=== PATIENT | female | born 1955 | race Caucasian/White ===

== ENCOUNTER 2024-11-10 13:09 | Outpatient (REF) | payer MEDICARE, OTHER, SELFPAY ==
--- OUTSIDE RECORDS SUMMARY | 2020-08-03 11:15 | XMS_ITS | Continuity of Care Document ---
Author [facility] Address [address] [place] [address] Phone Care Team Providers Care Drug Room Clerk Name Role Phone Maura Ibrahim CNP Unavailable Unavailable Procedures Procedure Date OFFICE/OUTPATIENT VISIT, EST OFFICE/OUTPATIENT VISIT, EST OFFICE/OUTPATIENT VISIT, EST OFFICE/OUTPATIENT VISIT, EST OFFICE/OUTPATIENT VISIT, EST POSTOP FOLLOW-UP VISIT POSTOP FOLLOW-UP VISIT Gastric Bypass LAP GASTRIC BYPASS/KRISTI-EN-Y OFFICE/OUTPATIENT VISIT, EST OFFICE/OUTPATIENT VISIT, NEW Advance Directives Directive Yes / No Effective Date File Name No Information Encounters Encounter Description Practice Location Reason(s) For Visit Diagnoses Date Provider Providers Copied on Encounter OFFICE/OUTPATI ENT VISIT, [facility], [address], [place], [place], [address], [place] tel:[phone] [facility] No Information Patrice Lorenzo. [address], [place], [place], [address], [place]. tel:[phone] Referring Provider: Maura Ibrahim, [address], [place], [address]. tel:[phone] OFFICE/OUTPATI ENT VISIT, Sit[facility]ar [facility], [address], [place], [place], [address], [place] tel:[phone] [facility] No Information Patrice Lorenzo. [address], [place], [place], [address], [place]. tel:[phone] Referring Provider: Maura Ibrahim, [facility] [address], [place], [address]. tel:[phone] OFFICE/OUTPATI ENT VISIT, [facility], [address], [place], [place], [address], [place] tel:[phone] [facility] No Information Patrice Lorenzo. [address] [facility] [facility] [address], [place], [place], [address], [place]. tel:[phone] Referring Provider: Maura Ibrahim, [facility] [address] [facility] [address] [facility] [facility] [address], [place], [address]. tel:[phone] OFFICE/OUTPATI ENT VISIT, [facility], [address], [place], [place], [address], [place] tel:[phone] [facility] No Information Patrice Lorenzo. [address] [facility] [facility] [facility] [address], [place], [place], [address], [place]. tel:[phone] Referring Provider: Maura Ibrahim, [facility] [address] [facility] [facility] [facility] [address], [place], [address]. tel:[phone] OFFICE/OUTPATI ENT VISIT, [facility], [address], [place], [place], [id number], [place] tel:[phone] [facility] No Information Patrice Lorenzo. [address], [place], [place], [address], [place]. tel:[phone] Referring Provider: Maura Ibrahim, [facility] [address] [facility] [facility] [address], [place], [address]. tel:[phone] Lavelle Col[facility]ore [facility], [address] [place] [address] [address], [place], [place], [address], [place] tel:[phone] [facility] No Information Patrice Lorenzo. [address], [place], [place], [address], [place]. tel:[phone] Referring Provider: Maura Ibrahim, [address], [place], [address]. tel:[phone] yuback [facility], [address] [place] [address] [address], [place], [place], [address], [place] tel:[phone] [facility] No Information Patrice Lorenzo. [facility] [address], [place], [place], [address], [place]. tel:[phone] Referring Provider: Maura Ibrahim, [facility] [address], [place], [address]. tel:[phone] yuback [facility], [address] [place] [address] [address], [place], [place], [address], [place] tel:[phone] [facility] IP No Information Patrice Lorenzo. [address], [place], [place], [address], [place]. tel:[phone] Referring Provider: Maura Ibrahim, [facility] [address], [place], [address]. tel:[phone] [facility], [address] [place] [address] [address], [place], [place], [address], [place] tel:[phone] [facility] IP No Information Estevan Shelton. [facility] [address], [place], [place], [address], [place]. tel:[phone] Referring Provider: Nikita Linder, [address], [place], [address]. tel:[phone] OFFICE/OUTPATI ENT VISIT, [facility], [address], [place], [place], [address], [place] tel:[phone] [facility] No Information Estevan Shelton. [address] [facility] [facility] [facility] [address], [place], [place], [address], [place]. tel:[phone] Referring Provider: Nikita Linder, [address] [facility] [address], [place], [address]. tel:[phone] OFFICE/OUTPATI ENT VISIT, [facility] yuback [facility], [address], [place], [place], [address], [place] tel:[phone] [facility] No Information Estevan Shelton. [address] [place] [address] [address], [place], [place], [address], [place]. tel:[phone] Referring Provider: Nikita Linder, [address], [place], [address]. tel:[phone] Family History Family Member Type Diagnosis Age At Onset No Information Payers Payer name Insurance type Covered green party ID [employer] emiliailya(s) [facility] [id number] Social History Type Description Quantity Date Captured Comments Sex Female Smoking Status No Information Chief Complaint And Reason For Visit No Information Reason For Referral Reason For Referral No Information History Of Present Illness Encounter Date Complaint History Of Prese nt Illness No Information Functional Status Date Functional Assessmen t No Information Instructions Date Instruction Additional Infor mation No Information Assessments Type Assessment Date No Information Patient Care Teams Name Effective Dates (start - stop) Status Members No Information
--- OUTSIDE RECORDS SUMMARY | 2024-11-10 14:20 | XMS_ITS | Encounter Summary ---
Author Organization [facility] Address [address] [place] [address] Care Team Providers Care Curtain Stretcher Name Role Phone Hermes Eric MD Primary Care Provider [phone] Reason for Visit * Reason Comments Follow-up Encounter Details Date Type Department Care Team (Late st Contact Info) Description 11/10/2024 2:20 PM EDT Office Visit [facility] [address] [place] [id number] Raciel Bhardwaj DO [address] [place] [address] Vulvar irritation Social History Tobacco Use Types Packs/Day Years Used Date Smoking Tobacco: Never Assessed Comments Unknown Sex and Gender Information Value Date Recorded Sex Assigned at Not on file Legal Sex Female 6:37 PM EDT Gender Identity Not on file Sexual Orientation Not on file documented as of this encounter Last Filed Vital Signs Vital Sign Reading Time Taken Comments Blood Pressure 132/82 11/10/2024 2:44 PM EDT Pulse - - Temperature - - Respiratory Rate - - Oxygen Saturation - - Inhaled Oxygen Concentration - - Weight 100 kg (221 lb) 11/10/2024 2:44 PM EDT Height - - Body Mass Index 44.64 10/20/2024 9:19 AM EDT documented in this encounter Progress Notes * Zoila Dominguez LPN - 11/10/2024 2:20 PM EDT Reason for Appointment: Patient ID: Anna Hallman is a 69 y.o. female who presents for Follow-up Patient presents today for Acute Visit. and Medication Follow Up appointment. MEDICATIONS Current Outpatient Medications Medication Instructions amitriptyline (ELAVIL) 25 mg, Nightly azelastine (Astelin) 0.1 % nasal spray 1 spray, 2 times daily dofetilide (TIKOSYN) 250 mcg, 2 times daily eletriptan (RELPAX) 20 mg, Once as needed estradiol (Estrace) 0.1 MG/GM vaginal cream Apply small amount to affected area around vaginal opening and perineum daily for 2 weeks, omeprazole (PRILOSEC) 20 mg, Daily before breakfast sertraline (ZOLOFT) 50 mg, Daily RT ALLERGIES Allergies Allergen Reactions Ibuprofen PROBLEMS Active Ambulatory Problems Diagnosis Date Noted No Active Ambulatory Problems Resolved Ambulatory Problems Diagnosis Date Noted No Resolved Ambulatory Problems Past Medical History: Diagnosis Date Anxiety 02/13/2022 Asthma ([facility]) 02/13/2022 Cervical spondylosis 03/07/2021 Chronic superficial gastritis without bleeding 05/29/2017 Degenerative lumbar spinal stenosis 03/07/2021 GERD without esophagitis 05/18/2017 Lymphedema of both lower extremities Morbid obesity ([facility]) 01/03/2017 Ophthalmic migraine 05/05/2019 Paroxysmal atrial fibrillation (HCC) 01/18/2023 HISTORY PAST MEDICAL HISTORY SOCIAL HISTORY Past Medical History: Diagnosis Date Anxiety 02/13/2022 Asthma (HCC) 02/13/2022 Cervical spondylosis 03/07/2021 Chronic superficial gastritis without bleeding 05/29/2017 Degenerative lumbar spinal stenosis 03/07/2021 GERD without esophagitis 05/18/2017 Lymphedema of both lower extremities Morbid obesity ([facility]) 01/03/2017 Ophthalmic migraine 05/05/2019 Paroxysmal atrial fibrillation ([facility]) 01/18/2023 Social History Tobacco Use Smoking status: Not on file Smokeless tobacco: Not on file Substance Use Topics Alcohol use: Not on file Drug use: Not on file FAMILY HISTORY Family History Problem Relation Name Age of Onset Prostate cancer Father Breast cancer Mother's Sister SURGICAL HISTORY Past Surgical History: Procedure Laterality Date GALLBLADDER HEART CATH 2021 STOMACH SURGERY 2019 rouen-y TONSILLECTOMY TOTAL KNEE ARTHROPLASTY Bilateral TUBAL LIGATION 1994 REVIEW OF SYSTEMS Review of Systems: Review of Systems Constitutional: Negative. HENT: Negative. Eyes: Negative. Respiratory: Negative. Cardiovascular: Negative. Gastrointestinal: Negative. Genitourinary: Positive for vaginal dryness. Musculoskeletal: Negative. Skin: Negative. Neurological: Negative. All other systems reviewed and are negative. Hematological: Negative. Endocrine: Negative. Allergic/Immunologic: Negative. OBJECTIVE Objective: Physical Exam Constitutional: Appearance: Normal appearance. She is well-developed. Cardiovascular: Rate and Rhythm: Normal rate and regular rhythm. Pulmonary: Effort: Pulmonary effort is normal. Breath sounds: Normal breath sounds. Abdominal: General: Bowel sounds are normal. There is no distension. Palpations: Abdomen is soft. Tenderness: There is no abdominal tenderness. There is no guarding or rebound. Musculoskeletal: General: No swelling. Normal range of motion. Right lower leg: No edema. Left lower leg: No edema. Neurological: Mental Status: She is alert and oriented to person, place, and time. Skin: General: Skin is warm and dry. Psychiatric: Mood and Affect: Mood normal. Behavior: Behavior normal. Vitals and nursing note reviewed. Exam conducted with a pediatric nurse present. Vitals: Estimated body mass index is 44.64 kg/m?? as calculated from the following: Height as of 10/20/24: 4' 11 . Weight as of this encounter: 221 lb. BP: 132/82 No LMP recorded. ASSESSMENT & PLAN ICD-10-CM 1. Vulvar irritation N90.89 Vulvar irritation: Patient presents today for vulvar irritation removal. Patient signed consents for procedure. Patient was placed in dorsal lithotomy position and was draped in normal fashion. Area cleansed with alcohol, lidocaine injected after allowing sufficient time to take affect. pickling drum operator and scissors used to remove affected area. Placed in formalin and sent to pathology. Post-procedure instructions given. Follow Up: As needed Documented by Zoila Dominguez LPN on behalf of: Raciel Bhardwaj DO documented in this encounter Plan of Treatment Not on file documented as of this encounter Visit Diagnoses Diagnosis Vulvar irritation documented in this encounter Care Teams Curtain Stretcher Relationship Specialty Start Date End Date Hermes Eric MD [address] [place] [address] PCP - General Internal Medicine 10/20/24 documented as of this encounter
--- OUTSIDE RECORDS SUMMARY | 2024-11-16 08:00 | XMS_ITS | Encounter Summary ---
Author Organization [facility] Address [address] [place] [address] Phone Care Team Providers Care Wet Roaster Name Role Phone AlyssapipeHermes Kennedy Primary Care Provider [phone] Oliver Otero MD Unavailable Unavailabl e Reason for Referral * Consultation (Routine) - Authorized Specialty Diagnoses / Procedures Referred By Contac t Referred To Contact Cardiology Diagnoses Paroxysmal atrial fibrillation (Multi) High risk medications (not anticoagulants) long-term use Procedures Follow Up In Cardiology Janice Jones APRN-CNP [address] [facility] [address], [address] [address] Phone: tel: fax: Referral ID Status Reason Start Date Expiration Date V isits Requested Visits Authorized [id number] Authorized 11/16/2024 11/16/2025 1 1 * Cardiovascular (Routine) - Authorized Specialty Diagnoses / Procedures Referred By Contac t Referred To Contact Diagnoses Paroxysmal atrial fibrillation (Multi) Procedures ECG 12 Lead Janice Jones APRN-CNP [address] [facility] [address], [address] [address] Phone: tel: fax: Referral ID Status Reason Start Date Expiration Date V isits Requested Visits Authorized [id number] Authorized 11/16/2024 11/16/2025 1 1 Reason for Visit * Reason Comments Follow-up 6 MONTH Follow up fo r Atrial Fibrillation * Consultation (Routine) - Authorized Specialty Diagnoses / Procedures Referred By Conttoy t Referred To Contact Cardiology Diagnoses Paroxysmal atrial fibrillation (Multi) Procedures Follow Up In Cardiology Janice Jones APRN-[facility] [address] [facility] [address], [address] [address] Phone: tel: fax: Referral ID Status Reason Start Date Expiration Date V isits Requested Visits Authorized [id number] Authorized 05/13/2024 05/13/2025 1 1 Encounter Details Date Type Department Care Team (Late st Contact Info) Description 11/16/2024 8:00 AM EDT Office Visit [facility] [address] [phone] Janice Jnoes APRN-[facility] [address] [facility] [address], [address] [address] High risk medications (not anticoagulants) long-term use (Primary Dx); Paroxysmal atrial fibrillation (Multi); BMI 45.0-49.9, adult (Multi) Social History Tobacco Use Types Packs/Day Years Used Date Smoking Tobacco: Never Smokeless Tobacco: Never Alcohol Use Standard Drinks/Week Comments Never 0 (1 standard drink = 0.6 oz pur e alcohol) Comments Unknown Sex and Gender Information Value Date Recorded Sex Assigned at Not on file Legal Sex Female 2:28 PM EST Gender Identity Not on file Sexual Orientation Not on file documented as of this encounter Last Filed Vital Signs Vital Sign Reading Time Taken Comments Blood Pressure 116/82 11/16/2024 7:59 AM EDT Pulse 65 11/16/2024 7:59 AM EDT Temperature - - Respiratory Rate - - Oxygen Saturation - - Inhaled Oxygen Concentration - - Weight 103 kg (226 lb 9.6 oz) 11/16/2024 7:59 AM EDT Height 149.9 cm (4' 11 ) 11/16/2024 7:59 AM EDT Body Mass Index 45.77 11/16/2024 7:59 AM EDT documented in this encounter Functional Status * BP Answer Date of Assessment Author Cliff/82 11/16/2024 7:59 AM EDT Reuben Kelly RN * Pulse Answer Date of Assessment Author 65 11/16/2024 7:59 AM EDT Reuben Kelly RN * Communicable Disease Screening Question Answer Date of Assessment Author Do you have any of the following new or worsening symptoms? None of these 11/16/2024 7:54 AM EDT Kathy Glover documented as of this encounter Patient Instructions * Patient Instructions* MACK Bernabe - 11/16/2024 8:00 AM EDT Please bring all medicines, vitamins, and herbal supplements with you when you come to the office. Prescriptions will not be filled unless you are compliant with your follow up appointments or have a follow up appointment scheduled as per instruction of your physician. Refills should be requested at the time of your visit. PLAN: Through informed decision making process incorporating patients unique circumstances, the followingtreatment plan will be initiated: 1. Prescription drug management of cardiovascular medication for efficacy, adherence to treatment, side effect assessment and polypharmacy. Current treatment clinically warranted and to continue without modifications. 2. Return for follow-up; in the interim, contact the office if new symptoms arise. HOUSEKEEPING ROOM ATTENDANT 6 months EKG done in office today documented in this encounter Plan of Treatment Upcoming Encounters Date Type Department Care Team (Late st Contact Info) Description 05/17/2025 8:30 AM EDT Office Visit [facility] [address] [facility] [address] [place] [address] Janice Jones APRN-CNP [address] [facility] [address] [place] [address] Pending Results Name Type Priority Associated Diagnoses Date /Time ECG 12 Lead ECG Routine Paroxysmal atrial fibrillation (Multi) 11/16/2024 8:00 AM EDT documented as of this encounter Visit Diagnoses Diagnosis High risk medications (not anticoagulants) long-term use- Primary Encounter for long-term (current) use of other medications Paroxysmal atrial fibrillation (Multi) Atrial fibrillation BMI 45.0-49.9, adult (Multi) documented in this encounter Additional Health Concerns Assessment Noted Time A fall risk assessment has been complete d for the patient 11/16/2024 7:58 AM EDT documented as of this encounter Care Teams Wet Roaster Relationship Specialty Start Date End Date Hermes Eric DO PCP - General 02/21/22 Oliver Otero MD Consulting Physician Cardiology 05/13/23 documented as of this encounter
--- OUTSIDE RECORDS SUMMARY | 2024-11-16 13:17 | XMS_ITS | Clinical Summary ---
Author Organization [facility] Address [address] [place] [address] Care Team Providers Care Real Estate Salesperson Name Role Phone Hermes Eric MD Primary Care Provider [phone] Allergies Active Allergy Reactions Criticality Noted Date Comments Ibuprofen 10/20/2024 Medications azelastine (Astelin) 0.1 % nasal spray Administer 1 spray into each nostril in the morning and 1 spray before bedtime. 5 Active amitriptyline (Elavil) 25 MG tablet Take 25 mg by mouth at bedtime Active eletriptan (Relpax) 20 MG tablet Take 20 mg by mouth 1 (one) time if needed Active omeprazole (PriLOSEC) [address] capsule Take 20 mg by mouth in the morning. Take before meals. Active sertraline (Zoloft) 50 MG tablet Take 50 mg by mouth in the morning. 5 Active dofetilide (Tikosyn) 250 MCG capsule Take 250 mcg by mouth in the morning and 250 mcg before bedtime. Active estradiol (Estrace) 0.1 MG/GM vaginal creamIndication s:Vaginal itching,Perinea l irritation in female Apply small amount to affected area around vaginal opening and perineum daily for 2 weeks, 42.5 g 5 Active terconazole (Terazol 7) 0.4 % vaginal creamIndication s:Vaginal itching,Perinea l irritation in female Insert 1 applicator into the vagina at bedtime for 7 days 45 g 5 10/28/19 25 Encounters Date Type Department Care Team Description 11/11/2024 External Result Encounter [facility] External Department Unsolicited Raciel Bhardwaj DO 11/10/2024 2:20 PM EDT Office Visit [facility] [address] [place] [phone] Raciel Bhardwaj DO Vulvar irritation 11/10/2024 Bamboo flowsheet [facility] [address] [facility] [place] [address] Raciel Bhardwaj DO 10/20/2024 9:10 AM EDT Office Visit [facility] [address] [place] [phone] Raciel Bhardwaj DO Vaginal itching; Vaginal dryness; Perineal irritation in female 10/20/2024 Bamboo flowsheet [facility] [address] [facility] [phone] Raciel Bhardwaj DO from Last 3 Months Family History Medical History Relation Name Comments Prostate cancer Father Breast cancer Mother's Sister Relation Name Status Comments Father Mother's Sister Social History Tobacco Use Types Packs/Day Years Used Date Smoking Tobacco: Never Assessed Comments Unknown Sex and Gender Information Value Date Recorded Sex Assigned at Not on file Legal Sex Female 6:37 PM EDT Gender Identity Not on file Sexual Orientation Not on file Last Filed Vital Signs Vital Sign Reading Time Taken Comments Blood Pressure 132/82 11/10/2024 2:44 PM EDT Pulse - - Temperature - - Respiratory Rate - - Oxygen Saturation - - Inhaled Oxygen Concentration - - Weight 100 kg (221 lb) 11/10/2024 2:44 PM EDT Height 149.9 cm (4' 11 ) 10/20/2024 9:19 AM EDT Body Mass Index 44.64 10/20/2024 9:19 AM EDT Plan of Treatment Health Maintenance Due Date Last Done Comments CT Colonography 1957 Colonoscopy 1957 FIT 1957 FOBT 1957 Sigmoidoscopy 1957 Influenza Vaccine (#1) 2024 , 10/18/2023, 11/10/2022, Additional history exists Mammogram 01/30/2025 01/31/2024 Colorectal Cancer Screening 10/25/2025 FIT-DNA 10/25/2025 10/25/2022, 10/19/2019 Pneumococcal Vaccine: 65+ Years Completed , 01/03/2017 Procedures Procedure Name Priority Date/Time Associated Diagnosis Comments PATHOLOGY REQUEST FOR LAB FADI Routine 11/11/2024 12:00 AM EDT from Last 3 Months Results * PATHOLOGY REQUEST FOR LAB FADI (11/11/2024 12:00 AM EDT) PATHOLOGY REQUEST FOR LAB FADI 11/16/2024 12:30 PM EDT [facility] Comment:See report. Scanned copy available in EMR. Other Topography unknown / Unknown 11/11/2024 11/12/2024 10:51 AM EDT Narrative [facility] - 11/16/2024 12:30 PM EDT VULVAR BX us Raciel Bhardwaj DO LAB BLOOD ORDERABLES Final Resul t Performing Organization Address [facility]/State/ZIP Co de Phone Number [facility] [address] [place] [address], [facility] [address] [place] [address] from Last 3 Months Insurance [place] [address] MEDICARE Care Teams Real Estate Salesperson Relationship Specialty Start Date End Date Hermes Eric MD [address] [place] [address] PCP - General Internal Medicine 10/20/24
--- OUTSIDE RECORDS SUMMARY | 2024-11-16 13:17 | XMS_ITS | Encounter Summary ---
Author Organization [facility] Address [address] [place] [address] Phone Care Team Providers Care Nut Feeder Name Role Phone Hermes Eric DO Primary Care Provider [phone] Oliver Otero MD Unavailable Unavailabl e Encounter Details Date Type Department Care Team (Late st Contact Info) Description 02/07/[address] [facility] [address] [place] [id number] Scanning, Generic Provider Social History Tobacco Use Types Packs/Day Years Used Date Smoking Tobacco: Never Assessed Comments Unknown Sex and Gender Information Value Date Recorded Sex Assigned at Not on file Legal Sex Female 2:28 PM EST Gender Identity Not on file Sexual Orientation Not on file documented as of this encounter Plan of Treatment Upcoming Encounters Date Type Department Care Team (Late st Contact Info) Description 05/17/2025 8:30 AM EDT Office Visit [facility] [address] [facility] [address] [place] [address] Janice Jones, FURNACE MAINTENA[facility] [address] [facility] [address] [place], [place] [id number] documented as of this encounter Visit Diagnoses Not on filedocumented in this encounter Care Teams Nut Feeder Relationship Specialty Start Date End Date Hermes Eric DO PCP - General 02/21/22 Oliver Otero MD Consulting Physician Cardiology 05/13/23 documented as of this encounter
--- OUTSIDE RECORDS SUMMARY | 2024-11-16 13:17 | XMS_ITS | Encounter Summary ---
Author Organization [facility] tem Address [facility] [id number] [address] [place] [address] Care Team Providers Care Bulk Plant Supervisor Name Role Phone Hermes Eric DO Primary Care Provider [phone] Encounter Details Date Type Department Care Team (Late st Contact Info) Description 06/29/2024 Orders Only [facility] Internal Medicine - Family Medicine [address] [place] [address] Hermes Eric DO [address] [place] [address] Colon cancer screening (Primary Dx) Social History Tobacco Use Types Packs/Day Years Used Date Smoking Tobacco: Never Smokeless Tobacco: Never Alcohol Use Standard Drinks/Week Comments Not Currently 0 (1 standard drink = 0.6 oz pur e alcohol) QUIT [facility] Utilities Answer Date Recorded In the past 12 months has [employer], gas, oil, or water [employer] threatened to shut off services in your home? No 01/23/2024 Social Connection and Isolat ion Panel [NHANES] Answer Date Recorded In a typical week, how many times do you talk on the phone with family, friends, or neighbors? Once a week 01/23/2024 How often do you get togethe r with friends or relatives? Twice a week 01/23/2024 How often do you attend chur or voodoo services? More than 4 times per year 01/23/2024 Do you belong to any clubs o r organizations such as restoration groups, unions, fraternal or athletic groups, or school groups? No 01/23/2024 How often do you attend meet ings of the clubs or organizations you belong to? Never 01/23/2024 Are you , , di vorced, , never , or living with a partner? 01/23/2024 AUDIT-C Answer Date Recorded Q1: How often do you have a drink containing alcohol? Never 01/23/2024 Q2: How many drinks containi ng alcohol do you have on a typical day when you are drinking? Patient does not drink Q3: How often do you have si x or more drinks on one occasion? Never 01/23/2024 Overall Financial Resource Strain (CARDIA) Answe r Date Recorded How hard is it for you to pa y for the very basics like food, housing, medical care, and heating? Not hard at all 06/18/2024 PHQ-2 Answer Date Recorded Total Score 0 06/19/2024 [facility] - Occupational Stress Questionnaire Answer Date Recorded Do you feel stress - tense, restless, nervous, or anxious, or unable to sleep at night because your mind is troubled all the time - these days? Not at all 01/23/2024 Exercise Vital Sign Answer Date Recorde d On average, how many days pe r week do you engage in moderate to strenuous exercise (like a brisk walk)? 7 days 01/23/2024 On average, how many minutes do you engage in exercise at this level? 20 min 01/23/2024 PRAPARE - Transportation Answer Date Re corded In the past 12 months, has l ack of transportation kept you from medical appointments or from getting medications? No 02/2024 In the past 12 months, has l ack of transportation kept you from meetings, work, or from getting things needed for daily living? No 06/18/2024 Housing Instability Answer Date Recorde d Are you worried or concerned that in the next two months you may not have stable housing that you own, rent or stay in as a part of a household? No 06/18/2024 Childcare Answer Date Recorded Do problems getting child ca re make it difficult for you to work or study? No 01/23/2024 Employment Answer Date Recorded Do you need help finding a [facility] career center and/or a training program? No 01/23/2024 Hunger Screening Answer Date Recorded Within the past 12 months we worried whether our food would run out before we got money to buy more. Never True 06/19/2024 Within the past 12 months th e food we bought just didn't last and we didn't have money to get more. Never True 06/19/2024 Purpose - Life Answer Date Recorded I have a purpose and direction in my life. Agree 01/23/2024 Comments No Sex and Gender Information Value Date Recorded Sex Assigned at Not on file Legal Sex Female 11:36 AM EDT Gender Identity Not on file Sexual Orientation Straight 04/25/2022 1: 34 PM EST documented as of this encounter Plan of Treatment Upcoming Encounters Date Type Department Care Team (Late st Contact Info) Description 01/26/2025 11:00 AM EST Office Visit [facility] - Family Medicine [address] [place] [address] documented as of this encounter Visit Diagnoses Diagnosis Colon cancer screening- Primary Special screening for malignant neoplasms, colon documented in this encounter Additional Health Concerns Assessment Noted Time PHQ-9 Depression Total Score: 0 06/20/19 11:15 AM EDT documented as of this encounter Care Teams Bulk Plant Supervisor Relationship Specialty Start Date End Date Hermes Eric DO [address] [place] [address] PCP - General Internal Medicine 08/23/24 documented as of this encounter
--- OUTSIDE RECORDS SUMMARY | 2024-11-16 13:17 | XMS_ITS | Encounter Summary ---
Author Organization [facility] [employer] [facility] tem Address [facility] [id number] [address] [place] [address] Care Team Providers Care Shank Breaker Name Role Phone Hermes Eric DO Primary Care Provider [phone] Reason for Referral * Rehabilitation - Outpatient (Routine) - Closed Specialty Diagnoses / Procedures Referred By Yarelis armas Referred To Contact Rehabilitation Diagnoses Localized primary osteoarthritis of both hands Hermes Eric DO [address] [place] [address] Phone: tel: fax: [facility] [address] [place] [address] Phone: tel: fax: Referral ID Status Reason Start Date Expiration Date V isits Requested Visits Authorized [id number] Closed Specialty Services Required 10/17/2023 10/17/2024 8 8 Encounter Details Date Type Department Care Team (Late st Contact Info) Description 10/17/2023 Orders Only [facility] Internal Medicine - Family Medicine [address] [place] [address] Hermes Eric DO [address] [place] [address] Localized primary osteoarthritis of both hands (Primary Dx) Social History Tobacco Use Types Packs/Day Years Used Date Smoking Tobacco: Never Smokeless Tobacco: Never Alcohol Use Standard Drinks/Week Comments Yes 1 (1 standard drink = 0.6 oz pur e alcohol) Overall Financial Resource Strain (CARDIA) Answe r Date Recorded How hard is it for you to pa y for the very basics like food, housing, medical care, and heating? Not hard at all 07/14/2023 PHQ-2 Answer Date Recorded Total Score 0 07/18/2023 PRAPARE - Transportation Answer Date Re corded In the past 12 months, has l ack of transportation kept you from medical appointments or from getting medications? No 06/19 In the past 12 months, has l ack of transportation kept you from meetings, work, or from getting things needed for daily living? No 07/14/2023 Housing Instability Answer Date Recorde d Are you worried or concerned that in the next two months you may not have stable housing that you own, rent or stay in as a part of a household? No 07/14/2023 Childcare Answer Date Recorded Childcare Unknown 07/30/2018 Employment Answer Date Recorded Employment Unknown 07/30/2018 Hunger Screening Answer Date Recorded Within the past 12 months we worried whether our food would run out before we got money to buy more. Patient Declined 024 Within the past 12 months th e food we bought just didn't last and we didn't have money to get more. Never True 06/19 Purpose - Life Answer Date Recorded Purpose and direction in life Unknown Comments Unknown Sex and Gender Information Value [...] Internal Medicine - Family Medicine [address] [place] [address] Scheduled Referrals Name Type Priority Associated Diagnoses Orde r Schedule Ambulatory Referral to Rehabilitation Occupational Therapy Outpatient Referral Routine Localized primary osteoarthritis of both hands 1 Occurrences starting 10/17/2023 until 10/16/2024 documented as of this encounter Visit Diagnoses Diagnosis Localized primary osteoarthritis of both hands- Primary documented in this encounter Additional Health Concerns Assessment Noted Time PHQ-9 Depression Total Score: 0 07/18/19 24 9:11 AM EDT documented as of this encounter Care Teams Shank Breaker Relationship Specialty Start Date End Date Hermes Eric DO [address] [place] [address] PCP - General Internal Medicine 08/23/24 documented as of this encounter
--- OUTSIDE RECORDS SUMMARY | 2024-11-16 13:17 | XMS_ITS | Encounter Summary ---
[facility] Address [facility] [id number] [address] [place] [address] Care Team Providers Care Furniture Repairer Name Role Phone Hermes Eric DO Primary Care Provider [phone] Reason for Visit * Reason Onset Date Comments Med Refill 11/12/2024 Encounter Details Date Type Department Care Team (Late st Contact Info) Description 11/12/2024 Refill [facility] Internal Medicine - Family Medicine [address] [place] [address] Hermes Eric DO [address] [place] [address] Non-seasonal allergic rhinitis, unspecified trigger Social History Tobacco Use Types Packs/Day Years Used Date Smoking Tobacco: Never Smokeless Tobacco: Never Alcohol Use Standard Drinks/Week Comments Not Currently 0 (1 standard drink = 0.6 oz pur e alcohol) QUIT [facility] Utilities Answer Date Recorded In the past 12 months has [employer], gas, oil, or water [employer] threatened to shut off services in your home? No 01/23/2024 Social Connection and Isolat ion Panel [NHANES] Answer Date Recorded In a typical week, how many times do you talk on the phone with family, friends, or neighbors? Once a week 01/23/2024 How often do you get togethe r with friends or relatives? Twice a week 01/23/2024 How often do you attend [facility] or shinto services? More than 4 times per year 01/23/2024 Do you belong to any clubs o r organizations such as moravian groups, unions, fraternal or athletic groups, or [...] PHQ-2 Answer Date Recorded Total Score 0 09/01/2024 [facility] - [...] Recorded Do you need help finding a [facility] career center and/or a training program? No 01/23/2024 Hunger Screening Answer Date Recorded Within the past 12 months we worried whether our food would run out before we got money to buy more. Never True 09/01/2024 Within the past 12 months th e food we bought just didn't last and we didn't have money to get more. Never True 09/01/2024 Purpose - Life Answer Date Recorded I [...] Internal Medicine - Family Medicine [address] [place] [phone] documented as of this encounter Visit Diagnoses Diagnosis Non-seasonal allergic rhinitis, unspecified trigger documented in this encounter Additional Health Concerns Assessment Noted Time PHQ-9 Depression Total Score: 0 09/02/19 25 3:01 PM EDT documented as of this encounter Care Teams Furniture Repairer Relationship Specialty Start Date End Date Hermes Eric DO [address] [facility] [place] [address] PCP - General Internal Medicine 08/23/24 documented as of this encounter
--- OUTSIDE RECORDS SUMMARY | 2024-11-16 13:17 | XMS_ITS | Encounter Summary ---
Author Organization [facility] Address [address] [place] [address] Phone Care Team Providers Care Advertising Account Representative Name Role Phone Hermes Eric Primary Care Provider [phone] Oliver Otero MD Unavailable Unavailabl e Encounter Details Date Type Department Care Team (Late st Contact Info) Description 06/19/2023 Scanned Document [facility] [address] [place] [phone] Scanning, Generic Provider Social History Tobacco Use Types Packs/Day Years Used Date Smoking Tobacco: Never Smokeless Tobacco: Current Comments:Vaping occasionally Alcohol Use Standard Drinks/Week Comments Never 0 (1 standard drink = 0.6 oz pur e alcohol) Comments Unknown Sex and Gender Information Value Date Recorded Sex Assigned at Not on file Legal Sex Female 2:28 PM EST Gender Identity Not on file Sexual Orientation Not on file documented as of this encounter Plan of Treatment Upcoming Encounters Date Type Department Care Team (Late Contact Info) Description 05/17/2025 8:30 AM EDT Office Visit [facility] [address] [facility] [address] [place] [address] Janice Jones, COPPER FLOTATION OPERATOR-ACID RETORT OPERATOR [address] [facility] [address], [address] [place] [address] documented as of this encounter Visit Diagnoses Not on filedocumented in this encounter Additional Health Concerns Assessment Noted Time A fall risk assessment has been complete d for the patient 05/13/2023 10:04 AM EDT documented as of this encounter Care Teams Advertising Account Representative Relationship Specialty Start Date End Date Hermes Eric DO PCP - General 02/21/22 Oliver Otero MD Consulting Physician Cardiology 05/13/23 documented as of this encounter
--- OUTSIDE RECORDS SUMMARY | 2024-11-16 13:17 | XMS_ITS | Clinical Summary ---
Author Organization [facility] Address [address] [place] [address] Phone Care Team Providers Care Dye Can Operator Name Role Phone Hermes Eric Primary Care Provider [phone] Oliver Otero MD Unavailable Unavailabl e Allergies Active Allergy Reactions Criticality Noted Date Comments Aspirin Other 01/18/2023 Ibuprofen Nausea/vomiting 01/18/2023 Medications omeprazole (PriLOSEC) [address] capsule Take 1 capsule (20 mg) by mouth once daily. Active sertraline (Zoloft) 100 mg tablet Take 1 tablet (100 mg) by mouth once daily. Active eletriptan (Relpax) 20 mg tablet Take 1 tablet (20 mg) by mouth 1 time if needed for migraine. May repeat in 2 hours if unresolved. Do not exceed 80 mg in 24 hours. Active amitriptyline (Elavil) 25 mg tablet Take 1 tablet (25 mg) by mouth once daily at bedtime. Active dofetilide (Tikosyn) 250 mcg capsuleIndicatio ns:Paroxysmal atrial fibrillation (Multi) Take 1 capsule (250 mcg) by mouth every 12 hours. 180 capsule 3 5 026 Active EPINEPHrine (Adrenalin) 1 mg/mL nasal solution Administer into affected nostril(s) if needed. 025 Discontin ued(Thera py completed ) dofetilide (Tikosyn) 250 mcg capsuleIndicatio ns:Paroxysmal atrial fibrillation (Multi) Take 1 capsule (250 mcg) by mouth every 12 hours. 180 capsule 3 5 09/29/2 025 Discontin ued(Reord er) Active Problems Problem Noted Date Diagnosed Date BMI 45.0-49.9, adult (Multi) 05/13/2023 Assessment & Plan (05/14/2024 9:52 AM EDT): Reviewed the merits of healthy lifestyle choices on overall cardiovascular health. Never smoked tobacco 05/13/2023 Paroxysmal atrial fibrillation (Multi) Assessment & Plan (05/14/2024 9:52 AM EDT): Diagnosed January 2022 hospitalization. She was initiated on dofetilide and has been maintaining normal sinus rhythm since that time. Denies any recurrent palpitations. CHADS VASc 2 in the past has opted against anticoagulation due to excessive bruisability. Also declines aspirin 81 mg due to history of gastric bypass. High risk medications (not anticoagulants) long- term use 01/18/2023 Assessment & Plan (05/14/2024 9:50 AM EDT): Dofetilide start date January 2022 EKG in office normal sinus rhythm, QTc 420. Last creatinine 0.77 Encounters Date Type Department Care Team Description 11/16/2024 8:00 AM EDT Office Visit [address] [address] Janice Jones, TENTMAKER-MEDICAL OFFICE COORDINATOR High risk medications (not anticoagulants) long-term use (Primary Dx); Paroxysmal atrial fibrillation (Multi); BMI 45.0-49.9, adult (Multi) 11/16/2024 Travel from Last 3 Months Immunizations Immunization Administration Dates Next Due Flu vaccine, quadrivalent, n o egg protein, age 6 month or greater (FLUCELVAX) 12/05/2017,01/03/2017 Influenza, injectable, MDCK, quadrivalent 2019 Influenza, seasonal, injectable 10/18/2023 Pfizer COVID-19 vaccine, biv alent, age 12 years and older (30 mcg/0.3 mL) 11/15/2021 Pfizer Chavez Cap SARS-CoV-2 05/19/2021 Pneumococcal conjugate vaccine, 13-valent (PREVN AR 13) 01/03/2017 Pneumococcal conjugate vaccine, 20-valent (PREVN AR 20) 09/11/2022 Social History Tobacco Use Types Packs/Day Years Used Date Smoking Tobacco: Never Smokeless Tobacco: Never Tobacco Cessation:Counseling Given: Yes Alcohol Use Standard Drinks/Week Comments Never 0 [...] Mass Index 45.77 11/16/2024 7:59 AM EDT Plan of Treatment Upcoming Encounters Date Type Department Care Team (Late st Contact Info) Description 05/17/2025 8:30 AM EDT Office Visit [facility] [address] [address] Janice Jones, TENTMAKER-MEDICAL OFFICE COORDINATOR 703 [facility] [address], [address] [place] [address] Health Maintenance Due Date Last Done Comments CT Colonography 1957 Colonoscopy 1957 FIT 1957 Lipid Panel 1955 Medicare Annual Wellness Visit (AWV) 1957 Sigmoidoscopy 1957 MMR Vaccines (1 of 1 - Standard series) 1958 Diabetes Screening 07/01/1975 Hepatitis C Screening 07/01/1975 DTaP/Tdap/Td Vaccines (2 - Td or Tdap) 07/27/2024 07/27/2014 Mammogram 01/30/2025 01/31/2024 Colorectal Cancer Screening 10/25/2025 FIT-DNA (Cologuard) 10/25/2025 10/25/2022, 08/31/202 0 Bone Density Scan 01/30/2026 01/31/2024 Zoster Vaccines Completed 05/16/2022, 02/27/2022 Pneumococcal Vaccine Completed 09/11/2022, 01/04/20 17 RSV High Risk: (Elderly (60+) or Population) Completed 12/08/2022 COVID-19 Vaccine Completed 11/06/2024, , 11/10/2022, Additional history exists Influenza Vaccine Completed 11/06/2024, , 10/18/2023, Additional history exists HIB Vaccines Aged Out No longer eligi ble based on patient's age to complete this topic HPV Vaccines Aged Out No longer eligi ble based on patient's age to complete this topic Hepatitis A Vaccines Aged Out No long er eligible based on patient's age to complete this topic Hepatitis B Vaccines Aged Out No long er eligible based on patient's age to complete this topic IPV Vaccines Aged Out No longer eligi ble based on patient's age to complete this topic Meningococcal Vaccine Aged Out No zaida bakari eligible based on patient's age to complete this topic Rotavirus Vaccines Aged Out No longer eligible based on patient's age to complete this topic Insurance MEDICARE PART A AND B [facility] Member Subscriber Plan / Payer (Ef fective 2023-Present) Name:Anna Hallman Relation to Subscriber:Self Name:Anna Hallman Payer ID:[id number] (IC) Type:Not on file Address: [address] [place] [id number] Care Teams Dye Can Operator Relationship Specialty Start Date End Date Hermes Eric DO PCP - General 02/21/22 Oliver Otero MD Consulting Physician Cardiology 05/13/23
--- OUTSIDE RECORDS SUMMARY | 2024-11-16 13:17 | XMS_ITS | Encounter Summary ---
Author Organization [facility] Address [address] [place] [address] Phone Care Team Providers Care Lead Technologist In Cytogenetics Name Role Phone Hermes Eric DO Primary Care Provider [phone] Oliver Otero MD Unavailable Unavailabl e Encounter Details Date Type Department Care Team (Late st Contact Info) Description 06/22/2024 Scanned Document [facility] [address] [place] [phone] Scanning, Generic Provider Social History Tobacco Use [...] Description 05/17/2025 8:30 AM EDT Office Visit [facility] [address] [facility] [address] [place] [address] Janice Jones, SALES RECRUITING COORDINATOR-CIGARETTE PACKING MACHINE OPERATOR [address] [facility] [address] [place] [address] documented as of this encounter Procedures Procedure Name Priority Date/Time Associated Diagnosis Comments OUTSIDE LAB SCAN 06/22/2024 documented in this encounter Results * OUTSIDE LAB SCAN (06/22/2024) Narrative 06/22/2024 Ordered by an unspecified provider. us Generic Provider Scanning OUTSIDE SCAN Final Result documented in this encounter Visit Diagnoses Not on filedocumented in this encounter Additional Health Concerns Assessment Noted Time A fall risk assessment has been complete d for the patient 05/13/2024 10:23 AM EDT documented as of this encounter Care Teams Lead Technologist In Cytogenetics Relationship Specialty Start Date End Date Hermes Eric DO PCP - General 02/21/22 Oliver Otero MD Consulting Physician Cardiology 05/13/23 documented as of this encounter
--- OUTSIDE RECORDS SUMMARY | 2024-11-16 13:17 | XMS_ITS | Encounter Summary ---
Author Organization [facility] Address [facility] [id number] [address] [place] [address] Care Team Providers Care Device Engineer Name Role Phone Hermes Eric DO Primary Care Provider [phone] Reason for Visit * Reason Comments Med Change Request Encounter Details Date Type Department Care Team (Late st Contact Info) Description 03/27/2022 Refill [facility] Internal Medicine - Family Medicine [address] [place] [address] Hermes Eric DO [address] [place] [address] Prudence guerra Social History Tobacco Use Types Packs/Day Years Used Date Smoking Tobacco: Never Smokeless Tobacco: Never Alcohol Use Standard Drinks/Week Comments Yes 1 (1 standard drink = 0.6 oz pur e alcohol) PHQ-2 Answer Date Recorded Total Score 0 03/22/2022 Childcare Answer Date Recorded Childcare Unknown 07/30/2018 Employment Answer Date Recorded Employment Unknown 07/30/2018 Purpose - Life Answer Date Recorded Purpose and direction in life Unknown Comments Unknown Sex and Gender Information Value Date Recorded Sex Assigned at Not on file Legal Sex Female 11:36 AM EDT Gender Identity Not on file Sexual Orientation Straight 04/25/2022 1: 34 PM EST COVID-19 Exposure Response Date Recorded In the last month, have you been in contact with someone who was confirmed or suspected to have Coronavirus / COVID-19? No / Unsure 03/30/2022 6:21 PM EST documented as of this encounter Plan of Treatment Upcoming Encounters Date Type Department Care Team (Late st Contact Info) Description 01/26/2025 11:00 AM EST Office Visit [facility] Medicine - Family Medicine [address] [place] [address] documented as of this encounter Visit Diagnoses Diagnosis Plantar wart documented in this encounter Additional Health Concerns Assessment Noted Time PHQ-9 Depression Total Score: 0 03/22/19 23 10:41 AM EST documented as of this encounter Care Teams Device Engineer Relationship Specialty Start Date End Date Hermes Eric DO [address] [place] [address] PCP - General Internal Medicine 08/23/24 documented as of this encounter
--- OUTSIDE RECORDS SUMMARY | 2024-11-16 13:17 | XMS_ITS | Encounter Summary ---
Author Organization [facility] Address [address] [place] [address] Care Team Providers Care Forestry Adviser Name Role Phone Hermes Eric MD Primary Care Provider [phone] Encounter Details Date Type Department Care Team (Late st Contact Info) Description 11/10/2024 Bamboo flowsheet [facility] [address] [place] [address] Raciel Bhardwaj DO [address] Daniela Oates, [facility] Social History Tobacco Use Types Packs/Day Years Used Date Smoking Tobacco: Never Assessed Comments Unknown Sex and Gender Information Value Date Recorded Sex Assigned at Not on file Legal Sex Female 6:37 PM EDT Gender Identity Not on file Sexual Orientation Not on file documented as of this encounter Plan of Treatment Not on file documented as of this encounter Visit Diagnoses Not on filedocumented in this encounter Care Teams Forestry Adviser Relationship Specialty Start Date End Date Hermes Eric MD [address] [place] [address] PCP - General Internal Medicine 10/20/24 documented as of this encounter
--- OUTSIDE RECORDS SUMMARY | 2024-11-16 13:17 | XMS_ITS | Encounter Summary ---
[facility] Address [id number] [address] [place] [address] Care Team Providers Care Tool Maker Bench Name Role Phone AlyssaHermes betancur Jony ADAN Primary Care Provider [phone] Encounter Details Date Type Department Care Team (Late st Contact Info) Description 06/19/2024 [facility]phone [facility] [address] [place] [address] Indigo Krishna CMA Social History Tobacco Use Types Packs/Day Years Used Date Smoking Tobacco: Never Smokeless Tobacco: Never Alcohol Use Standard Drinks/Week Comments Not Currently 0 (1 standard drink = 0.6 oz pur e alcohol) QUIT [facility] Utilities Answer Date Recorded In the past 12 months has e electric, gas, oil, or water [employer] threatened to shut off services in your home? No 01/23/2024 Social Connection and Isolat ion Panel [NHANES] Answer Date Recorded In a typical week, how many times do you talk on the phone with family, friends, or neighbors? Once a week 01/23/2024 How often do you get togethe r with friends or relatives? Twice a week 01/23/2024 How often do you attend chur ch or spiritism services? More than 4 times per year 01/23/2024 Do you belong to any clubs o r organizations such as congregation groups, unions, fraternal or athletic groups, or [...] Answer Date Recorded Total Score 0 06/19/2024 [facility] [place] of Occupat ional Health - Occupational Stress [...] Recorded Do you need help finding a l ocal career center and/or a training program? No [...] PM EST documented as of this encounter Functional Status * Over the last 2 weeks, how often have you been bothered by any of the following problems? Question Answer Date of Assessment Author Feeling nervous, anxious, or on edge 1 06/19/2024 11:15 AM EDT Jory Ring CMA Not being able to stop or co ntrol worrying 3 06/19/2024 11:15 AM EDT Jory Ring CMA Worrying too much about diff erent things 0 06/19/2024 11:15 AM EDT Jory Ring CMA Trouble relaxing 0 06/19/2024 11:15 AM EDT Jory Ring CMA Being so restless that it is hard to sit still 0 06/19/2024 11:15 AM EDT Jory Ring CMA Becoming easily annoyed or irritable 1 06/19/2024 11:15 AM EDT Jory Ring CMA Feeling afraid as if somethi ng awful might happen 0 06/19/2024 11:15 AM EDT Jory Ring CMA RUDDY-7 Total Score 5 06/19/2024 11:15 AM EDT Jory Ring CMA documented as of this encounter Miscellaneous Notes * Telephone Encounter - Indigo Krishna CMA - 06/19/2024 12:10 PM EDT This patient is scheduled for her Colonoscopy for Diverticulitis on July 07 at 9:00. She would like the SuPrep called in to [facility] * Telephone Encounter - Hermes Eric DO - 06/19/2024 12:10 PM EDT Message noted. H&P done Rx Suprep sent to pharmacy documented in this encounter Plan of Treatment Upcoming Encounters Date Type Department Care Team (Late st Contact Info) Description 01/26/2025 11:00 AM EST Office Visit [facility] Internal Medicine - Family Medicine [address] [place] [address] documented as of this encounter Visit Diagnoses Not on filedocumented in this encounter Additional Health Concerns Assessment Noted Time PHQ-9 Depression Total Score: 0 06/20/19 11:15 AM EDT documented as of this encounter Care Teams Tool Maker Bench Relationship Specialty Start Date End Date Hermes Eric DO [address] [place] [address] PCP - General Internal Medicine 08/23/24 documented as of this encounter
--- OUTSIDE RECORDS SUMMARY | 2024-11-16 13:17 | XMS_ITS | Encounter Summary ---
Author Organization [facility] tem Address [id number] [address] [place] [address] Care Team Providers Care Records Management Coordinator Name Role Phone Hermes Eric DO Primary Care Provider [phone] Reason for Referral * Occupational Therapy (Routine) - Closed Specialty Diagnoses / Procedures Referred By Yarelis gonzales Referred To Contact Occupational Therapy Diagnoses Pain of right thumb Tendinitis of thumb Hermes Eric DO [address] [place] [address] Phone: tel: fax: Referral ID Status Reason Start Date Expiration Date V isits Requested Visits Authorized [id number] Closed Specialty Services Required 10/31/2022 10/31/2023 8 8 Encounter Details Date Type Department Care Team (Late st Contact Info) Description 10/31/2022 Orders Only [facility] Internal Medicine - Family Medicine [address] [place] [address] Hermes Eric DO [address] [place], [place] [id number] Pain of right thumb (Primary Dx); Tendinitis of thumb Social History Tobacco Use Types Packs/Day Years Used Date Smoking Tobacco: Never Smokeless Tobacco: Never Alcohol Use Standard Drinks/Week Comments Yes 1 (1 standard drink = 0.6 oz pur e alcohol) Overall Financial Resource Strain (CARDIA) Answe r Date Recorded How hard is it for you to pa y for the very basics like food, housing, medical care, and heating? Not very hard 06/01/2022 PHQ-2 Answer Date Recorded Total Score 0 09/18/2022 PRAPARE - Transportation Answer Date Re corded In the past 12 months, has l ack of transportation kept you from medical appointments or from getting medications? No 05/19 In the past 12 months, has l ack of transportation kept you from meetings, work, or from getting things needed for daily living? No 06/01/2022 Housing Instability Answer Date Recorde d Are you worried or concerned that in the next two months you may not have stable housing that you own, rent or stay in as a part of a household? No 06/01/2022 Childcare Answer Date Recorded Childcare Unknown 07/30/2018 [...] Internal Medicine - Family Medicine [address] [place] [address] Scheduled Referrals Name Type Priority Associated Diagnoses Order Schedule Ambulatory referral to Occupational Therapy Outpatient Referral Routine Pain of right thumb Tendinitis of thumb 1 Occurrences starting 10/31/2022 until 11/01/2023 documented as of this encounter Visit Diagnoses Diagnosis Pain of right thumb- Primary Tendinitis of thumb documented in this encounter Additional Health Concerns Assessment Noted Time PHQ-9 Depression Total Score: 0 09/19/19 23 12:06 PM EDT documented as of this encounter Care Teams Records Management Coordinator Relationship Specialty Start Date End Date Hermes Eric DO [address] [place] [address] PCP - General Internal Medicine 08/23/24 documented as of this encounter
--- OUTSIDE RECORDS SUMMARY | 2024-11-16 13:17 | XMS_ITS | Encounter Summary ---
Author Organization [facility] Address [address] [place] [place] [address] Care Team Providers Care Goldsmith Apprentice Name Role Phone Hermes Eric MD Primary Care Provider [phone] Encounter Details Date Type Department Care Team (Late st Contact Info) Description 11/11/2024 External Result Encounter [facility] External Department Unsolicited Raciel Bhardwaj DO [address] [place], [place] [id number] Social History Tobacco Use Types Packs/Day Years Used Date Smoking Tobacco: Never Assessed Comments Unknown Sex and Gender Information Value Date Recorded Sex Assigned at Not on file Legal Sex Female 6:37 PM EDT Gender Identity Not on file Sexual Orientation Not on file documented as of this encounter Plan of Treatment Not on file documented as of this encounter Procedures Procedure Name Priority Date/Time Associated Diagnosis Comments PATHOLOGY REQUEST FOR LAB FADI Routine 11/11/2024 12:00 AM EDT documented in this encounter Results * PATHOLOGY REQUEST FOR LAB FADI (11/11/2024 12:00 AM EDT) PATHOLOGY REQUEST FOR LAB FADI 11/16/2024 12:30 PM EDT [facility] Comment:See report. Scanned copy available in EMR. Other Topography unknown / Unknown 11/11/2024 11/12/2024 10:51 AM EDT Narrative [facility] - 11/16/2024 12:30 PM EDT VULVAR BX us Raciel Benton DO LAB BLOOD ORDERABLES Final Resul t [facility] [address] [place] [address], [facility] [address] [place] [address] documented in this encounter Visit Diagnoses Not on filedocumented in this encounter Care Teams Goldsmith Apprentice Relationship Specialty Start Date End Date Hermes Eric MD [address] [place] [address] PCP - General Internal Medicine 10/20/24 documented as of this encounter
--- OUTSIDE RECORDS SUMMARY | 2024-11-16 13:17 | XMS_ITS | Encounter Summary ---
Author Organization [employer] tem Address [id number] [address] [place] [address] Care Team Providers Care Wind Operations Supervisor Name Role Phone Hermes Eric DO Primary Care Provider [phone] Encounter Details Date Type Department Care Team (Late st Contact Info) Description 11/19/2022 Orders Only [facility] Internal Medicine - Family Medicine [address] [place] [address] Hermes Eric DO [address] [place] [address] Migraine without aura, not intractable, without status migrainosus Social History Tobacco Use Types Packs/Day Years [...] PHQ-2 Answer Date Recorded Total Score 0 11/14/2022 PRAPARE - Transportation Answer Date Re corded [...] Internal Medicine - Family Medicine [address] [place] [address] documented as of this encounter Visit Diagnoses Diagnosis Migraine without aura, not intractable, without status migrainosus documented in this encounter Additional Health Concerns Assessment Noted Time PHQ-9 Depression Total Score: 0 11/15/19 23 3:57 PM EDT documented as of this encounter Care Teams Wind Operations Supervisor Relationship Specialty Start Date End Date Hermes Eric DO [address] [place] [address] PCP - General Internal Medicine 08/23/24 documented as of this encounter
--- OUTSIDE RECORDS SUMMARY | 2024-11-16 13:17 | XMS_ITS | Encounter Summary ---
Author Organization [facility] Address [id number] [address] [place] [address] Care Team Providers Care Channel Process Plant Operator Name Role Phone Hermes Eric DO Primary Care Provider [phone] Encounter Details Date Type Department Care Team (Late st Contact Info) Description 09/12/2022 Orders Only [facility] Internal Medicine - Family Medicine [address] [place] [address] Hermes Eric DO [address] [place] [address] Social History Tobacco Use Types Packs/Day Years [...] 06/01/2022 PHQ-2 Answer Date Recorded Total Score 1 09/11/2022 PRAPARE - Transportation Answer Date Re corded [...] Internal Medicine - Family Medicine [address] [facility] [place] [address] documented as of this encounter Procedures Procedure Name Priority Date/Time Associated Diagnosis Comments COLOGUARD Routine 10/23/2019 2:17 PM EDT COLOGUARD Routine 10/23/2019 2:16 PM EDT HEPATITIS C(HCV) ANTIBODY W/REFLEX TO PCR Routine 06/28/2016 2:13 PM EDT documented in this encounter Results * COLOGUARD (10/23/2019 2:17 PM EDT) Gerri Flores APRN-[facility] HE[facility] MAINTENANCE Final Re sult Performing Organization Address [facility] de Phone Number MANUALLY TRANSCRIBED RESULTS * COLOGUARD (10/23/2019 2:16 PM EDT) Gerri Flores APRN-[facility] MAINTENANCE Final Re sult * Hepatitis C(HCV) Ab w/ Reflex to PCR (06/28/2016 2:13 PM EDT) Hermes Eric DO LAB BLOOD ORDERABLES Final Resul t Performing Organization Address City/[facility] Co de Phone Number MANUALLY TRANSCRIBED RESULTS documented in this encounter Visit Diagnoses Not on filedocumented in this encounter Additional Health Concerns Assessment Noted Time PHQ-9 Depression Total Score: 1 09/12/19 23 8:54 AM EDT documented as of this encounter Care Teams Channel Process Plant Operator Relationship Specialty Start Date End Date Hermes Eric DO [address] [place] [address] PCP - General Internal Medicine 08/23/24 documented as of this encounter
--- OUTSIDE RECORDS SUMMARY | 2024-11-16 13:17 | XMS_ITS | Encounter Summary ---
Author Organization [facility] Address [address] [place] [address] Phone Care Team Providers Care Mortgage Loan Funder Name Role Phone Hermes Eric DO Primary Care Provider [phone] Oliver Otero MD Unavailable Unavailabl e Encounter Details Date Type Department Care Team (Late st Contact Info) Description 02/05/2022 Orders Only [facility] [address] [place] [address] Conversion, Onbase Social History Tobacco Use Types Packs/Day Years [...] Description 05/17/2025 8:30 AM EDT Office Visit [place] [address] [facility] [address] [place] [address] Janice Jones, SATELLITE INSTALLER-TEXTILE COATING MACHINE OPERATOR [address] [facility] [address] [place] [address] Scheduled Orders Name Type Priority Associated Diagnoses Orde r Schedule OUTSIDE LAB SCAN Lab Ordered: 02/05/2022 documented as of this encounter Visit Diagnoses Not on filedocumented in this encounter Care Teams Mortgage Loan Funder Relationship Specialty Start Date End Date Hermes Eric DO PCP - General 02/21/22 Oliver Otero MD Consulting Physician Cardiology 05/13/23 documented as of this encounter
--- OUTSIDE RECORDS SUMMARY | 2024-11-16 13:17 | XMS_ITS | Encounter Summary ---
Author Organization [facility] Address [address] [place] [address] Phone Care Team Providers Care Casino Games Dealer Name Role Phone Hermes Eric DO Primary Care Provider [phone] Oliver Otero MD Unavailable Unavailabl e Encounter Details Date Type Department Care Team (Latest Contact Info) Description 11/16/2024 Travel Social History Tobacco Use Types Packs/Day Years [...] on file documented as of this encounter Functional Status * BP Answer Date of Assessment Author 116/82 11/16/2024 7:59 AM EDT Reuben Kelly RN * Pulse Answer Date of Assessment Author 67 11/16/2024 7:59 AM EDT Reuben Kelly RN * Communicable Disease Screening Question Answer Date of Assessment Author Do you have any of the following new or worsening symptoms? None of these 11/16/2024 7:54 AM EDT Kathy Glover documented as of this encounter Plan of Treatment Upcoming Encounters Date Type Department Care Team (Late st Contact Info) Description 05/17/2025 8:30 AM EDT Office Visit [facility] [address] [facility] [address] [place] [address] Janice Jones, POLE TRUCK DRIVER-RECEIVING SPECIALIST [address] [place] [address] documented as of this encounter Visit Diagnoses Not on filedocumented in this encounter Additional Health Concerns Assessment Noted Time A fall risk assessment has been complete d for the patient 11/16/2024 7:58 AM EDT documented as of this encounter Care Teams Casino Games Dealer Relationship Specialty Start Date End Date Hermes Eric DO PCP - General 02/21/22 Oliver Otero MD Consulting Physician Cardiology 05/13/23 documented as of this encounter
--- OUTSIDE RECORDS SUMMARY | 2024-11-16 13:18 | XMS_ITS | Clinical Summary ---
Author Organization [facility] tem Address [facility] [id number] [address] [place] [address] Care Team Providers Care Grinder Set Up Operator Thread Name Role Phone Hermes Eric Primary Care Provider [phone] Allergies Active Allergy Reactions Criticality Noted Date Comments Cat Dander Itching 02/12/2022 Doxycycline Vomiting 02/13/2022 Ibuprofen Vomiting 08/31/2016 Medications dofetilide (TIKOSYN) 250 MCG capsule Take 1 capsule (250 mcg total) by mouth in the morning and 1 capsule (250 mcg total) before bedtime. 2 Active eletriptan (RELPAX) 20 mg tabletIndicatio ns:Migraine without aura, not intractable, without status migrainosus TAKE 1 TAB ONCE NEEDED FOR MIGRAINE. MAY REPEAT IN 2 HOURS IF UNRESOLVED *MAX 4/24 HOURS* 12 tablet 4 Active amitriptyline (ELAVIL) 25 mg tabletIndicatio ns:Migraine without aura, not intractable, without status migrainosus TAKE 1 TABLET BY MOUTH EVERY DAY AT NIGHT 90 tablet 1 5 Active omeprazole (PriLOSEC) 20 mg capsule TAKE 1 CAPSULE BY MOUTH EVERY DAY IN THE MORNING 90 capsule 1 5 Active sertraline (ZOLOFT) 50 mg tabletIndicatio ns:Depression, unspecified Take 1 tablet (50 mg total) by mouth in the morning. 90 tablet 1 5 Active azelastine (ASTELIN) 137 mcg (0.1 %) nasal sprayIndication s:Non-seasonal allergic rhinitis, unspecified trigger Administer 2 sprays into each nostril in the morning and 2 sprays before bedtime. Use in each nostril as directed. 90 mL 1 5 Active azelastine (ASTELIN) 137 mcg (0.1 %) nasal sprayIndication s:Non-seasonal allergic rhinitis, unspecified trigger INSTILL 2 SPRAYS INTO EACH NOSTRIL IN THE MORNING AND BEFORE BEDTIME DIRECTED 90 mL 1 5 11/13/19 25 Discontin ued(Reord er) Active Problems Problem Noted Date Diagnosed Date Colon cancer screening 06/29/2024 Paroxysmal A-fib 01/18/2023 Asthma 02/13/2022 Anxiety disorder 02/13/2022 Degenerative lumbar spinal stenosis 03/07/2021 Cervical spondylosis 03/07/2021 Ophthalmic migraine 05/05/2019 Chronic superficial gastritis without bleeding 0 05/29/2017 GERD without esophagitis 05/18/2017 Morbid obesity 01/03/2017 Lymphedema of both lower extremities Encounters Date Type Department Care Team Description 11/12/2024 Refill [facility] [address] [place] [address] Hermes Eric, Non-seasonal allergic rhinitis, unspecified trigger 11/08/2024 Refill [facility] [address] [place] [address] eHrmes Eric, Non-seasonal allergic rhinitis, unspecified trigger 09/01/2024 3:00 PM EDT Office Visit [facility] [address] [place] [address] Hermes Eric, Cellulitis of right lower extremity (Primary Dx); Lower urinary tract symptoms (LUTS) 08/31/2024 Travel 08/24/2024 [facility]phone [facility] [address] [place] [address] Rupal Mendoza, YUSUF Er Follow-up 08/23/2024 9:49 AM EDT - 08/23/2024 10:10 AM EDT Emergency [facility] - Emergency [address] [place] [address] Ming Escobar MD Insect stings, accidental or unintentional, initial encounter (Primary Dx) Discharge Disposition: Home 08/23/2024 Travel from Last 3 Months Immunizations Immunization Administration Dates Next Due COVID-19, mRNA, LNP-S, PF, 30mcg/0.3mL Dose 11/10/2022,01/10/2021,05/13/2020,2020 Covid-19, Mrna, Lnp-s, Bival ent, Pf, 30mcg/0.3 ml 11/15/2021 Covid-19, Mrna, Lnp-s, Pf, 3 0 Mcg/0.3 Ml Dose, Vitaliy-sucrose 05/19/2021 Covid-19, Mrna, Lnp-s, Pf,vitaliy-sucrose,30 Mcg/0.3ml Seasonal 11/15/2023,11/10/2022 Influenza (IM) Preservative Free 12/29/2015 Influenza Vaccine, Quadrival ent, Adjuvanted 11/10/2022 Influenza, Im Trivalent Preservative 10/18/2023 Influenza, Injectable, MDCK, Quadrivalent 11/19/2019 Influenza, Injectable, Mdck, Preservative Free, Quad 12/05/2017,01/03/2017 Influenza, Injectable, quadr ivalent (PF) 11/23/2020,12/03/2018 Influenza, Trivalent, Adjuvanted 11/15/2023 Influenza, Unspecified 11/15/2021 Pneumococcal Conjugate 13-Valent 01/03/2017 Pneumococcal Conjugate 20-valent 09/11/2022 RSV, recombinant, protein gresham bunit RSVpreF, adjuvant reconstituted, 0.5 mL, PF 12/08/2022 SARS-COV-2 (COVID-19) Vaccin e, Unspecified 11/16/2021 Tdap 07/27/2014 Zoster Live 02/27/2022 Zoster Vaccine Recombinant 05/16/2022 Family History Medical History Relation Name Comments Cancer Father Prostate Breast cancer Maternal Aunt Prema Voss Was not cau se of , unk age Aortic aneurysm Mother Chris Breast Cancer Neg Hx Relation Name Status Comments Father Maternal Aunt Prema Voss Mother Social History Tobacco Use Types Packs/Day Years Used Date Smoking Tobacco: Never Smokeless Tobacco: Never Tobacco Cessation:Counseling Given: Not Answered Alcohol Use Standard Drinks/Week Comments Not Currently 0 (1 standard drink = 0.6 oz pur e alcohol) QUIT [facility] Utilities Answer Date Recorded In the past 12 months has th e electric, gas, oil, or water company threatened to shut off services in your [...] often do you attend chur ch or taoist services? More than 4 times per year 01/23/2024 Do you belong to any clubs o r organizations such as orthodox groups, unions, fraternal or athletic groups, or [...] Answer Date Recorded Total Score 0 09/01/2024 [facility] Occupat ional Health - Occupational Stress [...] Recorded Do you need help finding a [facility] and/or a training program? No 01/23/2024 [...] Orientation Straight 04/25/2022 1: 34 PM EST Last Filed Vital Signs Vital Sign Reading Time Taken Comments Blood Pressure 118/80 09/01/2024 3:01 PM EDT Pulse 65 09/01/2024 3:01 PM EDT Temperature 36.5 C (97.7 F) 09/01/2024 3:01 PM EDT Respiratory Rate 18 09/01/2024 3:01 PM EDT Oxygen Saturation 98% 09/01/2024 3:01 PM EDT Inhaled Oxygen Concentration - - Weight 100.9 kg (222 lb 6.4 oz) 09/01/2024 3:01 PM EDT Height 149.9 cm (4' 11.02 ) 09/01/2024 3:01 PM E DT Body Mass Index 44.9 09/01/2024 3:01 PM EDT Plan of Treatment Upcoming Encounters Date Type Department Care Team (Late st Contact Info) Description 01/26/2025 11:00 AM EST Office Visit [facility] [address] [place] [address] Health Maintenance Due Date Last Done Comments Adult BMI Follow Up Plan 07/01/1975 Zoster (Shingles) Vaccine (3 of 3) 07/11/2022 05/16/2022, 02/27/2022 DTaP,Tdap and Td Vaccines (2 - Td or Tdap) 07/27/2024 07/27/2014 COVID-19 Vaccine (2023-2 5 season) 2024 11/15/2023, 11/10/2022, 11/10/2022, Additional history exists Influenza Vaccine 10/19/2024 11/15/2023, , 11/10/2022, Additional history exists Medicare Annual Wellness Visit 01/22/2025 01/23/2024 Fall Risk Screening 06/19/2025 06/19/2024 Adult BMI Screening 09/01/2025 09/01/2024 Depression Screening 09/01/2025 09/01/2024 Tobacco Screening 09/01/2025 09/01/2024 Colon Cancer Screening 3 Yea r Cologuard 10/25/2025 10/25/2022, 10/23/2019, 10/23/2019, Additional history exists Medical Devices Not on file Procedures Procedure Name Priority Date/Time Associated Diagnosis Comments COLOGUARD NON-[facility] Routine 10/25/2022 8:10 AM EDT Special screening for malignant neoplasm of colon from Last 3 Months or Most Recently Relevant to Health Maintenance Results * Cologuard Non-[facility] (10/25/2022 8:10 AM EDT) EXTERNAL COLOGUARD Negative Negative 2022 5:57 PM EDT [facility] (CLIA #:[id number]) Comment: NEGATIVE TEST RESULT. A negative Cologuard result indicates a low likelihood that a colorectal cancer (CRC) or advanced adenoma (adenomatous polyps with more advanced pre-malignant features) is present. The chance that a person with a negative Cologuard test has a colorectal cancer is less than 1 in 1500 (negative predictive value >99.9%) or has an advanced adenoma is less than 5.3% (negative predictive value 94.7%). These data are based on a prospective cross-sectional study of 10,000 individuals at average risk for colorectal cancer who were screened with both Cologuard and colonoscopy. (Dinesh Garvin al, N Engl J Med 2014;370(14):1703-1678) The normal value (reference range) for this assay is negative. COLOGUARD RE-SCREENING RECOMMENDATION: Periodic colorectal cancer screening is an important part of preventive healthcare for asymptomatic individuals at average risk for colorectal cancer. Following a negative Cologuard result, the [place] Cancer Society and U.S. Multi-Society Task Force screening guidelines recommend a Cologuard re-screening interval of 3 years. References: [place] [employer] Guideline for Colorectal Cancer Screening: https://www.cancer.org/cancer/cooja-nccdto-dyoqvp/jijoepncb-hhyrxvmtg-cdueavg/ac s-rec ommendations.html.; Morro BONILLA, Breonna SOSA, Holger BeaulieuK, Colorectal Cancer Screening: Recommendations for Physicians and Patients from the U.S. Multi-Society Task Force on Colorectal Cancer Screening , Am J Gastroenterology 2017; 112:5091-9418. TEST DESCRIPTION: Composite algorithmic analysis of stool DNA-biomarkers with hemoglobin immunoassay. Quantitative values of individual biomarkers are not reportable and are not associated with individual biomarker result reference ranges. Cologuard is intended for colorectal cancer screening of adults of either sex, 45 years or older, who are at average-risk for colorectal cancer (CRC). Cologuard has been approved for use by the U.S. FDA. The performance of Cologuard was established in a cross sectional study of average-risk adults aged 50-84. Cologuard performance in patients ages 45 to 49 years was estimated by sub-group analysis of near-age groups. Colonoscopies performed for a positive result may find as the most clinically significant lesion: colorectal cancer [4.0%], advanced adenoma (including sessile serrated polyps greater than or equal to 1cm diameter) [20%] or non- advanced adenoma [31%]; or no colorectal neoplasia [45%]. These estimates are derived from a prospective cross-sectional screening study of 10,000 individuals at average risk for colorectal cancer who were screened with both Cologuard and colonoscopy. (Dinesh Garvin al, N Engl J Med 2014;370(14):5185-0125.) Cologuard may produce a false negative or false positive result (no colorectal cancer or precancerous polyp present at colonoscopy follow up). A negative Cologuard test result does not guarantee the absence of CRC or advanced adenoma (pre-cancer). The current Cologuard screening interval is every 3 years. ([place] Cancer Society and U.S. Multi-Society Task Force). Cologuard performance data in a 10,000 patient pivotal study using colonoscopy as the reference method can be accessed at the following location: www.BaroFold/results. Additional description of the Cologuard test process, warnings and precautions can be found at www.PrintiogImimtekrdLibriLoop. Stool specimen (specimen) Rectum structure / Unknown 10/25/2022 8:10 AM EDT 10/27/2022 3:51 PM EDT Hermes Eric DO LAB ORDERABLES Final Result [facility] (CLIA #:[id number]) [address] [place] [address], from Last 3 Months or Most Recently Relevant to Health Maintenance Insurance MEDICARE Care Teams Grinder Set Up Operator Thread Relationship Specialty Start Date End Date Hermes Eric DO [facility] [place] [address] PCP - General Internal Medicine 08/23/24
--- OUTSIDE RECORDS SUMMARY | 2024-11-16 13:18 | XMS_ITS | Encounter Summary ---
Author Organization [facility] tem Address [id number] [address] [place] [address] Care Team Providers Care Workforce Investment Act Career Manager Name Role Phone Hermes Eric Primary Care Provider [phone] Encounter Details Date Type Department Care Team (Late Contact Info) Description 04/26/2022 Telephone [facility] [address] [place] [address] Indigo Krishna CMA Social History Tobacco Use Types Packs/Day Years Used Date Smoking Tobacco: Never Smokeless Tobacco: Never Alcohol Use Standard Drinks/Week Comments Yes 1 (1 standard drink = 0.6 oz pur e alcohol) PHQ-2 Answer Date Recorded Total Score 7 04/24/2022 Childcare Answer Date Recorded Childcare Unknown 07/30/2018 [...] have Coronavirus / COVID-19? No / Unsure 04/25/2022 10:22 AM EST documented as of this encounter Plan of Treatment Upcoming Encounters Date Type Department Care Team ([facility] Contact Info) Description 01/26/2025 11:00 AM EST Office Visit [facility] [address] [place] [address] documented as of this encounter Visit Diagnoses Not on filedocumented in this encounter Additional Health Concerns Assessment Noted Time PHQ-9 Depression Total Score: 7 04/25/19 23 8:33 AM EST documented as of this encounter Care Teams Workforce Investment Act Career Manager Relationship Specialty Start Date End Date Hermes Eric DO [address] [place] [address] PCP - General Internal Medicine 08/23/24 documented as of this encounter
--- OUTSIDE RECORDS SUMMARY | 2024-11-16 13:18 | XMS_ITS | Encounter Summary ---
Author Organization [email or web address] Address [facility] [id number] [address] [place] [address] Care Team Providers Care Consulting Intern Name Role Phone Hermes Eric DO Primary Care Provider Reason for Referral * Consultation (Routine) - Closed Specialty Diagnoses / Procedures Referred By Yarelis gonzales Referred To Contact Rehabilitation Diagnoses Localized primary osteoarthritis of both hands Hermes Eric DO [address] [place] [address] Phone: tel: fax: [facility] [address] [place] [address] Phone: tel: fax: Referral ID Status Reason Start Date Expiration Date V isits Requested Visits Authorized [id number] Closed Specialty Services Required 05/16/2022 05/16/2023 8 8 Scheduling Instructions Occupational Therap Encounter Details Date Type Department Care Team (Late st Contact Info) Description 05/16/2022 Orders Only [facility] [address] [place] [address] Hermes Eric DO [address] [place] [address] Localized primary osteoarthritis of both hands (Primary [...] Internal Medicine - Family Medicine [address] [place] [address] Scheduled Referrals Name Type Priority Associated Diagnoses Orde r Schedule [facility] [place] [place] Outpatient Referral Routine Localized primary osteoarthritis of both hands 1 Occurrences starting 05/16/2022 until 05/17/2023 documented as of this encounter Visit Diagnoses Diagnosis Localized primary osteoarthritis of both hands- Primary documented in this encounter Additional Health Concerns Assessment Noted Time PHQ-9 Depression Total Score: 7 04/25/19 23 8:33 AM EST documented as of this encounter Care Teams Consulting Intern Relationship Specialty Start Date End Date Hermes Eric DO [address] [place] [address] PCP - General Internal Medicine 08/23/24 documented as of this encounter
--- OUTSIDE RECORDS SUMMARY | 2024-11-16 13:18 | XMS_ITS | Encounter Summary ---
Author Organization [facility] tem Address [id number] [address] [place] [place] [address] Care Team Providers Care Meteorological Observer Name Role Phone Hermes Eric Primary Care Provider [phone] Encounter Details Date Type Department Care Team (Late st Contact Info) Description 05/16/2022 Telephone [facility] [address] [place] [address] Indigo Krishna CMA Social History Tobacco Use [...] AM EST documented as of this encounter Miscellaneous Notes * Telephone Encounter - Indigo Krishna CMA - 05/16/2022 8:20 AM EDT Kaitlin from Physical Therapy called and she thinks you meant to send the order to Occupational Therapy because it is for her hands. documented in this encounter Plan of Treatment Upcoming Encounters Date Type Department Care Team (Late st Contact Info) Description 01/26/2025 11:00 AM EST Office Visit [facility] [address] [place] [address] documented as of this encounter Visit Diagnoses Not on filedocumented in this encounter Additional Health Concerns Assessment Noted Time PHQ-9 Depression Total Score: 7 04/25/19 23 8:33 AM EST documented as of this encounter Care Teams Meteorological Observer Relationship Specialty Start Date End Date Hermes Eric DO [address] [place] [address] PCP - General Internal Medicine 08/23/24 documented as of this encounter
--- OUTSIDE RECORDS SUMMARY | 2024-11-16 13:18 | XMS_ITS | Encounter Summary ---
Author Organization [place] tem Address [id number] [address] [place] [address] Care Team Providers Care Jewel Grinder Name Role Phone Hermes Eric DO Primary Care Provider [phone] Encounter Details Date Type Department Care Team (Late st Contact Info) Description 05/03/2022 Orders Only [facility] - [facility] [address] [place] [address] Hermes Eric DO [address] [place] [address] Localized primary osteoarthritis of both hands (Primary [...] Internal Medicine - Family Medicine [address] [place] [address] documented as of this encounter Visit Diagnoses Diagnosis Localized primary osteoarthritis of both hands- Primary documented in this encounter Additional Health Concerns Assessment Noted Time PHQ-9 Depression Total Score: 7 04/25/19 23 8:33 AM EST documented as of this encounter Care Teams Jewel Grinder Relationship Specialty Start Date End Date Hermes Eric DO [address] [place] [address] PCP - General Internal Medicine 08/23/24 documented as of this encounter
--- OUTSIDE RECORDS SUMMARY | 2024-11-16 13:18 | XMS_ITS | Encounter Summary ---
Author Organization [facility] tem Address [facility]-[id number] [address] [place] [address] Care Team Providers Care Plate And Frame Filter Operator Name Role Phone Hermes Eric Primary Care Provider Encounter Details Date Type Department Care Team (Late Contact Info) Description 04/25/2022 Orders Only [facility] [address] [place] [address] Indigo Krishna CMA Pain of right thumb Social History Tobacco Use Types Packs/Day [...] Upcoming Encounters Date Type Department Care Team ([facility] Contact Info) Description 01/26/2025 11:00 AM EST Office Visit [facility] [address] [place] [address] documented as of this encounter Procedures Procedure Name Priority Date/Time Associated Diagnosis Comments XR HAND RT MIN 3 VWS Routine 04/25/2022 4:45 PM EST Pain of right thumb documented in this encounter Results * X-ray hand right minimum 3 views (04/25/2022 4:45 PM EST) Anatomical Region Laterality Modality Upper Extremities, MSK, Hand Com puted Radiography Hermes Eric DO [facility]G DIAGNOSTIC IMAGING ORDERABLE S Final Result documented in this encounter Visit Diagnoses Diagnosis Pain of right thumb documented in this encounter Additional Health Concerns Assessment Noted Time PHQ-9 Depression Total Score: 7 04/25/19 23 8:33 AM EST documented as of this encounter Care Teams Plate And Frame Filter Operator Relationship Specialty Start Date End Date Hermes Eric DO [address] [place] [address] PCP - General Internal Medicine 08/23/24 documented as of this encounter
--- OUTSIDE RECORDS SUMMARY | 2024-11-16 13:18 | XMS_ITS | Encounter Summary ---
Author Organization [facility] [employer] tem Address [id number] [address] [place] [address] Care Team Providers Care Human Resources Analyst Name Role Phone AlyssaHermes betancur Primary Care Provider [phone] Encounter Details Date Type Department Care Team (Late st Contact Info) Description 05/31/2022 [facility]phone [facility] [address] [place] [address] Mabel Dumont CMA Social History Tobacco Use Types Packs/Day [...] 06/01/2022 PHQ-2 Answer Date Recorded Total Score 7 04/24/2022 PRAPARE - Transportation Answer Date Re corded [...] PM EST documented as of this encounter Miscellaneous Notes * Telephone Encounter - Mabel Dumont CMA - 05/31/2022 8:51 AM EDT Pt has a cold, congestion, fever, and thought it was just a head cold. She took an outdated covid test and it was positive. She wonders if this is still accurate? Any advice for pt? * Telephone Encounter - Hermes Guadalupe DO - 05/31/2022 8:51 AM EDT I certainly cannot say for sure whether it is accurate or not. If her symptoms are bad enough, she can come and have a MARKETING PROJECT COORDINATOR swab for COVID in the parking lot, to see if she needs Paxlovid. If her symptoms are mild, she can assume it was COVID, and isolate herself for 5 days and treat symptomatically.There is any questions, this is a perfect telehealth visit. * Telephone Encounter - Mabel Dumont CMA - 05/31/2022 8:51 AM EDT Gerri, they put her on your schedule, dr guadalupe had nothing available. documented in this encounter Plan of Treatment Upcoming Encounters Date Type Department Care Team (Late st Contact Info) Description 01/26/2025 11:00 AM EST Office Visit [facility] [address] [place] [address] documented as of this encounter Visit Diagnoses Not on filedocumented in this encounter Additional Health Concerns Assessment Noted Time PHQ-9 Depression Total Score: 7 04/25/19 8:33 AM EST documented as of this encounter Care Teams Human Resources Analyst Relationship Specialty Start Date End Date Hermes Guadalupe DO [address] [place] [address] PCP - General Internal Medicine 08/23/24 documented as of this encounter
--- OUTSIDE RECORDS SUMMARY | 2024-11-16 13:18 | XMS_ITS | Encounter Summary ---
Author Organization [facility] tem Address [facility] [place] [place]-[id number] [address] [place] [address] Care Team Providers Care Batting Machine Operator Name Role Phone Hermes Eric Primary Care Provider [phone] Encounter Details Date Type Department Care Team (Late Contact Info) Description 04/26/2022 Orders Only [facility] - [facility] [address] [place] [address] Gerri Flores, SENIOR BUSINESS MANAGER-CAN TECHNICIAN [address] [place] [address] Social History Tobacco Use Types Packs/Day Years [...] Department Care Team (Late Contact Info) Description 01/26/2025 11:00 AM EST Office Visit [facility] [address] [place] [address] documented as of this encounter Procedures Procedure Name Priority Date/Time Associated Diagnosis Comments HM COLOGUARD Routine 10/23/2019 documented in this encounter Results * HM COLOGUARD (10/23/2019) Gerri Flores SENIOR BUSINESS MANAGER-CAN TECHNICIAN HEALTH MAINTENANCE Final Re sult MANUALLY TRANSCRIBED RESULTS documented in this encounter Visit Diagnoses Not on filedocumented in this encounter Additional Health Concerns Assessment Noted Time PHQ-9 Depression Total Score: 7 04/25/19 23 8:33 AM EST documented as of this encounter Care Teams Batting Machine Operator Relationship Specialty Start Date End Date Hermes Eric DO [address] [place] [address] PCP - General Internal Medicine 08/23/24 documented as of this encounter
--- OUTSIDE RECORDS SUMMARY | 2024-11-16 13:18 | XMS_ITS | Encounter Summary ---
Author Organization [facility] tem Address [id number] [address] [place] [address] Care Team Providers Care Stockkeeper Name Role Phone Hermes Eric DO Primary Care Provider [phone] Encounter Details Date Type Department Care Team (Late st Contact Info) Description 09/18/2022 Orders Only [facility] Internal [facility] - Family Medicine [address] [place] [address] Hermes Eric DO [address] [place] [address] Special screening for malignant neoplasm of colon (Primary Dx) Social History Tobacco Use Types [...] Medicine - Family Medicine [address] [place] [address] documented as of this encounter Procedures Procedure Name Priority Date/Time Associated Diagnosis Comments COLOGUARD NON-[facility] Routine 10/25/2022 8:10 AM EDT Special screening for malignant neoplasm of colon documented in this encounter Results * Cologuard Non-[facility] (10/25/2022 8:10 AM EDT) EXTERNAL COLOGUARD Negative Negative 2022 5:57 PM EDT Agent Panda (CLIA #:[id number]) Comment: NEGATIVE TEST RESULT. A negative Cologuard [...] (Dinesh Garvin al, N Engl J Med 2014;370(14):8203-8862) The normal value (reference range) for this assay is negative. COLOGUARD RE-SCREENING RECOMMENDATION: Periodic colorectal cancer screening is an important part of preventive healthcare for asymptomatic individuals at average risk for colorectal cancer. Following a negative Cologuard result, the [place] [employer] and U.S. Multi-Society Task Force screening guidelines recommend a Cologuard re-screening interval of 3 years. References: [place] [employer] Guideline for Colorectal Cancer Screening: https://www.cancer.org/cancer/hnomh-vbresy-cgeoxa/eixmxncuz-aosniwaws-wxtptgo/ac s-rec ommendations.html.; Morro DK, Breonna SOSA, Holger BeaulieuK, Colorectal Cancer Screening: Recommendations for Physicians and Patients from the U.S. Multi-Society Task Force on Colorectal Cancer Screening , Am J Gastroenterology 2017; 112:7912-4477. TEST DESCRIPTION: Composite algorithmic analysis of stool [...] screened with both Cologuard and colonoscopy. (Dinesh Bates et al, N Engl J Med 2014;370(14):5063-8190.) Cologuard may produce a false negative or false positive result (no colorectal cancer or precancerous polyp present at colonoscopy follow up). A negative Cologuard test result does not guarantee the absence of CRC or advanced adenoma (pre-cancer). The current Cologuard screening interval is every 3 years. ([place] [employer] and U.S. Multi-Society Task Force). Cologuard performance data in a 10,000 patient pivotal study using colonoscopy as the reference method can be accessed at the following location: www.Nusocket.Real Time Tomography/results. Additional description of the Cologuard test process, warnings and precautions can be found at www.cologuard.com. Stool specimen (specimen) Rectum structure / Unknown 10/25/2022 8:10 AM EDT 10/27/2022 3:51 PM EDT us Hermes Eric DO LAB ORDERABLES Final Result Agent Panda (CLIA #:[id number]) [address] [place] [address], documented in this encounter Visit Diagnoses Diagnosis Special screening for malignant neoplasm of colon- Primary Special screening for malignant neoplasms, colon documented in this encounter Additional Health Concerns Assessment Noted Time PHQ-9 Depression Total Score: 0 09/19/19 23 12:06 PM EDT documented as of this encounter Care Teams Stockkeeper Relationship Specialty Start Date End Date Hermes Eric DO [address] [place] [address] PCP - General Internal Medicine 08/23/24 documented as of this encounter
--- OUTSIDE RECORDS SUMMARY | 2024-11-16 13:18 | XMS_ITS | Encounter Summary ---
Author [facility] Address [id number] [address] [place] [address] Care Team Providers Care Paddle Dyeing Machine Operator Name Role Phone Hermes Eric DO Primary Care Provider [phone] Reason for Visit * Reason Comments Med Refill Encounter Details Date Type Department Care Team (Late st Contact Info) Description 11/08/2024 Refill [facility] Internal Medicine - Family Medicine [address] [place] [address] Hermes Eric DO [address] [place] [address] Non-seasonal allergic rhinitis, unspecified trigger Social History Tobacco Use Types Packs/Day Years Used Date Smoking Tobacco: Never Smokeless Tobacco: Never Alcohol Use Standard Drinks/Week Comments Not Currently 0 (1 standard drink = 0.6 oz pur e alcohol) QUIT [facility] Utilities Answer Date Recorded In the past 12 months has vozero, gas, oil, or water Droplet threatened to shut off services in your [...] How often do you attend chur or mosque services? More than 4 times per year 01/23/2024 Do you belong to any clubs o r organizations such as sabianist groups, unions, fraternal or athletic groups, or [...] Answer Date Recorded Total Score 0 09/01/2024 [facility] Occupat ional Health - Occupational Stress [...] Recorded Do you need help finding a [facility] career center and/or a training program? No [...] Internal Medicine - Family Medicine [address] [place] [address] documented as of this encounter Visit Diagnoses Diagnosis Non-seasonal allergic rhinitis, unspecified trigger documented in this encounter Additional Health Concerns Assessment Noted Time PHQ-9 Depression Total Score: 0 09/02/19 3:01 PM EDT documented as of this encounter Care Teams Paddle Dyeing Machine Operator Relationship Specialty Start Date End Date Hermes Eric DO [address] [facility] [place] [address] PCP - General Internal Medicine 08/23/24 documented as of this encounter
== END 2024-11-10 13:10 | disposition home or self-care (01) ==
LOC: LAB 13:09
PROVIDERS: PCP Internal Medicine; Visit Provider Obstetrics & Gynecology
DX: N90.89 Other specified noninflammatory disorders of vulva and perineum (principal)

== ENCOUNTER 2025-01-21 08:38 | Outpatient (REF) | payer MEDICARE, OTHER, SELFPAY ==
--- OUTSIDE RECORDS SUMMARY | 2025-01-21 10:00 | XMS_ITS | Encounter Summary ---
Author Organization [facility] Address [address] [facility] [place] [address] Care Team Providers Care Makeup Sales Consultant Name Role Phone Hermes Eric MD Primary Care Provider [phone] Reason for Visit * ReasonCommentsGynecologic Exam Encounter Details DateTypeDepartmentCare Team (Latest Contact Info)Halswowntyn90/04/2025 10:00 AM ESTProcedure Visit [facility] [address] [place] [address] Nara Victoria PA [address] [facility] [address] [place], [place] [id number] Well woman exam with routine gynecological exam; Encounter for screening mammogram for malignant neoplasm of breast Social History Tobacco UseTypesPacks/DayYears UsedDateSmoking Tobacco: Never Assessed CommentsUnknownSex and Gender InformationValueDate RecordedSex Assigned at Not on fileLegal RiqHurczv47/15/2023 6:37 PM EDTGender IdentityNot on fileSexual OrientationNot on filedocumented as of this encounter Last Filed Vital Signs Vital SignReadingTime TakenCommentsBlood Qenecsrc466/8201/21/2025 10:21 AM EST Pulse--Temperature--Respiratory Rate--Oxygen Saturation--Inhaled Oxygen Concentration--Nljldv741 kg (228 lb)01/21/2025 10:21 AM ESTHeight--Body Mass Index46.0512/02/2024 9:24 AM EDTdocumented in this encounter Progress Notes * NAY Dozier - 01/21/2025 10:00 AM EST Reason for Appointment: Patient ID: Anna Hallman is a 69 y.o. female who presents for Gynecologic Exam Patient presents today for Annual Exam. MEDICATIONS Current Outpatient Medications Medication Instructions amitriptyline [...] Medical History: Diagnosis Date Anxiety 02/13/2022 Asthma ([facility]) 02/13/2022 Cervical spondylosis 03/07/2021 Chronic superficial gastritis without bleeding 05/29/2017 Degenerative lumbar spinal stenosis 03/07/2021 GERD without esophagitis 05/18/2017 Lymphedema of both lower extremities Morbid obesity ([facility]) 01/03/2017 Ophthalmic migraine 05/05/2019 Paroxysmal atrial fibrillation ([facility]) 01/18/2023 HISTORY PAST MEDICAL HISTORY SOCIAL HISTORY Past Medical History: Diagnosis Date Anxiety 02/13/2022 Asthma (HCC) 02/13/2022 Cervical spondylosis 03/07/2021 Chronic superficial gastritis without bleeding 05/29/2017 Degenerative lumbar spinal stenosis 03/07/2021 GERD without esophagitis 05/18/2017 Lymphedema of both lower extremities Morbid obesity ([facility]) 01/03/2017 Ophthalmic migraine 05/05/2019 Paroxysmal atrial fibrillation ([facility]) 01/18/2023 Social History Tobacco [...] Respiratory: Negative. Cardiovascular: Negative. Gastrointestinal: Negative. Genitourinary: Negative. Musculoskeletal: Negative. Skin: Negative. Neurological: Negative. All other systems reviewed and are negative. Hematological: Negative. Endocrine: Negative. Allergic/Immunologic: Negative. OBJECTIVE Objective: Physical Exam Constitutional: Appearance: Normal appearance. Genitourinary: Right Adnexa: not tender and no mass present. Left Adnexa: not tender and no mass present. No cervical discharge. Breasts: Breasts are soft. Right: Normal. Left: Normal. HENT: Head: Normocephalic. Nose: Nose normal. Mouth/Throat: Mouth: Mucous membranes are moist. Cardiovascular: Rate and Rhythm: Normal rate. Pulmonary: Effort: Pulmonary effort is normal. Abdominal: General: Bowel sounds are normal. Palpations: Abdomen is soft. Musculoskeletal: General: Normal range of motion. Cervical back: Normal range of motion. Neurological: General: No focal deficit present. Mental Status: She is alert. Skin: General: Skin is warm and dry. Psychiatric: Mood and Affect: Mood normal. Vitals and nursing note reviewed. Exam conducted with a baler operator present. Vitals: Estimated body mass index is 44.64 kg/m?? as calculated from the following: Height as of 12/02/24: 4' 11 . Weight as of 12/02/24: 221 lb. BP: No LMP recorded. ASSESSMENT & PLAN ICD-10-CM 1. Well woman exam with routine gynecological exam Z01.419 THIN PREP TIS PAP AND HR HPV DNA CANCELED: THIN PREP TIS PAP AND HR HPV DNA 2. Encounter for screening mammogram for malignant neoplasm of breast Z12.31 Bilateral screening mammogram Bilateral screening mammogram Assessment/Plan Annual Exam: Patient presents today for an annual exam. Patient states she is doing well and has no complaints. Pap was obtained without difficulty. Orders Placed This Encounter Procedures Bilateral screening mammogram Follow Up: Patient is to return in one year for annual unless needed otherwise. Documented by Ida Longoria CST on behalf of: NAY Dozier documented in this encounter Plan of Treatment DateTypeDepartmentCare Team (Latest Contact Info)Kdbotpeggjf44/02/2026 10:00 AM ESTProcedure Visit [facility] [address] [place] [address] Nara Victoria PA [address] [place] [address] NameTypePriorityAssociated DiagnosesOrder ScheduleBilateral screening mammogram ImagingRoutine Encounter for screening mammogram for malignant neoplasm of breast Expected: 01/21/2025, Expires: 03/24/2026THIN PREP TIS PAP AND HR HPV DNA Pathology and CytologyRoutine Well woman exam with routine gynecological exam Ordered: 01/21/2025documented as of this encounter Visit Diagnoses Diagnosis Well woman exam with routine gynecological exam Routine gynecological examination Encounter for screening mammogram for malignant neoplasm of breast documented in this encounter Care Teams Team MemberRelationshipSpecialtyStart DateEnd Date Hermes Eric MD [address] [place] [address] PCP - GeneralInternal Medicine10/20/24documented as of this encounter
--- OUTSIDE RECORDS SUMMARY | 2025-01-21 12:26 | XMS_ITS | Clinical Summary ---
Author Organization [facility] Address [address] [place] [address] Care Team Providers Care Language And Literature Division Chair Name Role Phone Hermes Eric MD Primary Care Provider [phone] Allergies Active AllergyReactionsCriticalityNoted ZvbnXijcpcfrRhntytbmk08/02/2025 Medications MedicationSigDispense QuantityRefillsLast FilledStart DateEnd DateStatus azelastine (Astelin) 0.1 % nasal spray Administer 1 spray into each nostril in the morning and 1 spray before bedtime. 5Active amitriptyline (Elavil) 25 MG tablet Take 25 mg by mouth at bedtimeActive eletriptan (Relpax) 20 MG tablet Take 20 mg by mouth 1 (one) time if neededActive omeprazole (PriLOSEC) [address] capsule Take 20 mg by mouth in the morning. Take before meals.Active sertraline (Zoloft) 50 MG tablet Take 50 mg by mouth in the morning.5Active dofetilide (Tikosyn) 250 MCG capsule Take 250 mcg by mouth in the morning and 250 mcg before bedtime.Active estradiol (Estrace) 0.1 MG/GM vaginal cream Indications:Vaginal itching,Perineal irritation in femaleApply small amount to affected area around vaginal opening and perineum daily for 2 weeks, 42.5 g 5Active Encounters DateTypeDepartmentCare NcpjVmyogdcolid51/04/2025 10:00 AM ESTProcedure Visit [facility] [address] [place] [address] [place] [address] Nara Victoria PA Well woman exam with routine gynecological exam; Encounter for screening mammogram for malignant neoplasm of tcvvfk4601/21/2025 Bamboo flowsheet [facility] [address] [place] [address] Nara Victoria PA 12/02/2024 9:30 AM EDTOffice Visit [facility] [address] [place] [address] Nara Victoria PA Follow-up encounter involving bzdlviyjrz83/15/2025amboo flowsheet [facility] [address] [place] [address] Nara Victoria PA 11/17/2024Telephone [facility] [address] [place] [address] Selma Giles MA 11/17/2024bstract [facility] [address] [place] [address] Selma Giles AL 11/17/2024bstract [facility] [address] [place] [address] Selma Giles AL 11/11/2024External Result Encounter [facility] External Department Unsolicited Raciel Bhardwaj DO 11/10/2024 2:20 PM EDTOffice Visit [facility] [address] [place] [address] Raciel Bhardwaj DO Vulvar tiaeoyepxi63/23/2025amboo flowsheet [facility] [address] [place] [address] Raciel Bhardwaj DO from Last 3 Months Family History Medical HistoryRelationNameCommentsProstate cancerFatherBreast cancerMother's SisterRelationNameStatusCommentsFatherMother's Sister Social History Tobacco UseTypesPacks/DayYears UsedDateSmoking Tobacco: Never Assessed CommentsUnknownSex and Gender InformationValueDate RecordedSex Assigned at Not on fileLegal AihGnatrd94/15/2023 6:37 PM EDTGender IdentityNot on fileSexual OrientationNot on file Last Filed Vital Signs Vital SignReadingTime TakenCommentsBlood Ysnidrgr319/8201/21/2025 10:21 AM EST Pulse--Temperature--Respiratory Rate--Oxygen Saturation--Inhaled Oxygen Concentration--Vwgrbp236 kg (228 lb)01/21/2025 10:21 AM IEPNsjzdd049.9 cm (4' 11 )12/02/2024 9:24 AM EDTBody Mass Index46.0512/02/2024 9:24 AM EDT Plan of Treatment DateTypeDepartmentCare Team (Latest Contact Info)Kjcabcixrhk80/02/2026 10:00 AM ESTProcedure Visit [facility] [address] [facility] [facility] [place] [address] Nara Victoria PA [address] [facility] [place] [address] Health MaintenanceDue DateLast DoneCommentsCT Nbogncgzhnip07/13/1958Colonoscopy 1957FIT1957FOBT1957 9295Uhqmyrqqmvntg07/13/1958COVID-19 Vaccine ( season), 11/15/2023, 11/10/2022, Additional history zdaatdBsbtirdbx90/13/202512/4Colorectal Cancer Cxkzdmhql55/07/2026 FIT-DNA/08/2022, 10/19/2019Pneumococcal Vaccine: 65+ YearsCompleted 09/11/2022, 01/03/2017Influenza UgipktrScfamfujj46/19/2025, 11/15/2023, 10/18/2023, Additional history exists Procedures Procedure NamePriorityDate/TimeAssociated DiagnosisCommentsPATHOLOGY REQUEST FOR LAB OIITMdtnnqs95/24/2025 12:00 AM EDT from Last 3 Months Results * PATHOLOGY REQUEST FOR LAB FADI (11/11/2024 12:00 AM EDT)ComponentValueRef RangeTest MethodAnalysis TimePerformed AtPathologist SignaturePATHOLOGY REQUEST FOR LAB CORP11/16/2024 12:30 PM EDTFOur [facility] of [facility] Comment:See report. Scanned copy available in EMR.Specimen (Source)Anatomical Location / LateralityCollection Method / VolumeCollection TimeReceived Time OtherTopography unknown / Tbakedw82/ 10:51 AM EDT Narrative [facility] - 11/16/2024 12:30 PM EDT VULVAR BX Authorizing ProviderResult TypeResult StatusCorey Benton DOLAB BLOOD ORDERABLES Final ResultPerforming OrganizationAddressCity/State/ZIP CodePhone Number [facility] [address] [place] [address], [facility] [address] [place] [address] from Last 3 Months Insurance Care Teams Team MemberRelationshipSpecialtyStart DateEnd Date Hermes Eric MD [address] [place] [address] PCP - GeneralInternal Medicine10/20/24
--- OUTSIDE RECORDS SUMMARY | 2025-01-21 12:26 | XMS_ITS | Encounter Summary ---
Author Organization [facility] tem Address [id number] [address] [place] [address] Care Team Providers Care Cloth Shader Name Role Phone Hermes Eric DO Primary Care Provider [phone] Reason for Visit * ReasonCommentsMed Refill Encounter Details DateTypeDepartmentCare Team (Latest Contact Info)Pjjbciqhjuv15/03/2025Refill [facility] Internal Medicine - Family Medicine [address] [place] [address] Hermes Eric DO [address] [place] [address] Depression, unspecified Social History Tobacco UseTypesPacks/DayYears UsedDateSmoking Tobacco: NeverSmokeless Tobacco: NeverAlcohol UseStandard Drinks/WeekCommentsNot Currently0 (1 standard drink = 0.6 oz pure alcohol)[facility] UtilitiesAnswerDate RecordedIn the past 12 months has the [employer], oil, or water myOrder threatened to shut off services in your home?No01/23/2024Social Connection and Isolation PanelAnswerDate RecordedIn a typical week, how many times do you talk on the phone with family, friends, or neighbors?Once a week01/23/2024How often do you get together with friends or relatives?Twice a week01/23/2024How often do you attend yazidism or latter day services?More than 4 times per year01/23/2024o you belong to any clubs or organizations such as yazidism groups, unions, fraternal or athletic groups, or school groups?No01/23/2024How often do you attend meetings of the clubs or organizations you belong to?Never01/23/2024re you , , , , never , or living with a partner?Fzhyrmy1601/23/2024UDIT-C AnswerDate RecordedQ1: How often do you have a drink containing alcohol?Never 01/23/2024Q2: How many drinks containing alcohol do you have on a typical day when you are drinking?Patient does not drink01/23/2024Q3: How often do you have six or more drinks on one occasion?Never01/23/2024Overall Financial Resource Strain (CARDIA)AnswerDate RecordedHow hard is it for you to pay for the very basics like food, housing, medical care, and heating?Not hard at all06/18/2024 PHQ-2AnswerDate RecordedTotal Migon532[facility] [place] [facility] - Occupational Stress QuestionnaireAnswerDate RecordedDo you feel stress - tense, restless, nervous, or anxious, or unable to sleep at night because your mind is troubled all the time - these days?Not at all01/23/2024Exercise Vital SignAnswerDate RecordedOn average, how many days per week do you engage in moderate to strenuous exercise (like a brisk walk)?7 days01/23/2024On average, how many minutes do you engage in exercise at this level?20 min01/23/2024RAPARE - TransportationAnswerDate RecordedIn the past 12 months, has lack of transportation kept you from medical appointments or from getting medications?No 06/18/2024In the past 12 months, has lack of transportation kept you from meetings, work, or from getting things needed for daily living?No06/18/2024 Housing InstabilityAnswerDate RecordedAre you worried or concerned that in the next two months you may not have stable housing that you own, rent or stay in as a part of a household?No06/18/2024hildcareAnswerDate RecordedDo problems getting children librarian make it difficult for you to work or study?No01/23/2024 EmploymentAnswerDate RecordedDo you need help finding a local career center and/or a training program?No01/23/2024Hunger ScreeningAnswerDate RecordedWithin the past 12 months we worried whether our food would run out before we got money to buy more.Never True09/01/2024Within the past 12 months the food we bought just didn't last and we didn't have money to get more.Never True09/01/2024 Purpose - LifeAnswerDate RecordedI have a purpose and direction in my life.Agree 01/23/2024CommentsNoSex and Gender InformationValueDate RecordedSex Assigned at BirthNot on fileLegal UonTskjwx50/06/2015 11:36 AM EDTGender IdentityNot on fileSexual MmcxkwawjcvArxiiocw41/08/2023 1:34 PM ESTdocumented as of this encounter Plan of Treatment DateTypeDepartmentCare Team (Latest Contact Info)Masilczehrf06/08/2025 4:15 PM ESTOffice Visit [facility] [address] [place] [address] Hermes Eirc DO [address] [place] [address] 01/26/2025 11:00 AM ESTOffice Visit [facility] [address] [place] [address] documented as of this encounter Visit Diagnoses Diagnosis Depression, unspecified documented in this encounter Additional Health Concerns AssessmentNoted TimePHQ-9 Depression Total Score: 3:01 PM EDT documented as of this encounter Care Teams Team MemberRelationshipSpecialtyStart DateEnd Date Hermes Eric DO [address] [place] [address] PCP - GeneralInternal Medicine08/23/24documented as of this encounter
--- OUTSIDE RECORDS SUMMARY | 2025-01-21 12:26 | XMS_ITS | Encounter Summary ---
Author Organization [facility] Address [address] [facility] [place] [address] Care Team Providers Care Director Of Hemophilia Name Role Phone Hermes Eric MD Primary Care Provider [phone] Encounter Details DateTypeDepartmentCare Team (Latest Contact Info)Nnhsxcymhoj59/04/2025amboo flowsheet [facility] [address] [place] [address] [place] [address] Nara Victoria PA [address] [place] [address] [address] [place], [facility] Social History Tobacco UseTypesPacks/DayYears UsedDateSmoking Tobacco: Never Assessed CommentsUnknownSex and Gender InformationValueDate RecordedSex Assigned at Not on fileLegal JqrHefayq54/15/2023 6:37 PM EDTGender IdentityNot on fileSexual OrientationNot on filedocumented as of this encounter Plan of Treatment DateTypeDepartmentCare Team (Latest Contact Info)Iqjcohbsfiu60/02/2026 10:00 AM ESTProcedure Visit [facility] [address] [place] [address] Nara Victoria PA [address] [place] [address] [place] [address] documented as of this encounter Visit Diagnoses Not on filedocumented in this encounter Care Teams Team MemberRelationshipSpecialtyStart DateEnd Date Hermes Eric MD [address] [place] [address] PCP - GeneralInternal Medicine10/20/24documented as of this encounter
--- OUTSIDE RECORDS SUMMARY | 2025-01-21 12:26 | XMS_ITS | Clinical Summary ---
Author Organization [employer] s tem Address [id number] [address] [place] [address] Care Team Providers Care Gas And Oil Checker Name Role Phone AlyssaHermes betancur Primary Care Provider [phone] Allergies Active AllergyReactionsCriticalityNoted DateCommentsCat UvxyygBeolnuo75/26/2022 RetqurkrvhwAtnkdjaq00/27/3206DrogggehkLibelxtt43/14/2017 Medications MedicationSigDispense QuantityRefillsLast FilledStart DateEnd DateStatus dofetilide (TIKOSYN) 250 MCG capsule Take 1 capsule (250 mcg total) by mouth in the morning and 1 capsule (250 mcg total) before bedtime.2Active eletriptan (RELPAX) 20 mg tablet Indications:Migraine without aura, not intractable, without status migrainosus TAKE 1 TAB ONCE NEEDED FOR MIGRAINE. MAY REPEAT IN 2 HOURS IF UNRESOLVED *MAX 4/24 HOURS* 12 tablet 4Active azelastine (ASTELIN) 137 mcg (0.1 %) nasal spray Indications:Non-seasonal allergic rhinitis, unspecified triggerAdminister 2 sprays into each nostril in the morning and 2 sprays before bedtime. Use in each nostril as directed. 90 mL 5Active amitriptyline (ELAVIL) 25 mg tablet Indications:Migraine without aura, not intractable, without status migrainosus TAKE 1 TABLET BY MOUTH EVERY DAY AT NIGHT 90 tablet 5Active omeprazole (PriLOSEC) 20 mg capsule TAKE 1 CAPSULE BY MOUTH EVERY DAY IN THE MORNING 90 capsule 5Active sertraline (ZOLOFT) 50 mg tablet Indications:Depression, unspecifiedTAKE 1 TABLET (50 MG TOTAL) BY MOUTH IN THE MORNING 90 tablet 5Active sertraline (ZOLOFT) 50 mg tablet Indications:Depression, unspecifiedTake 1 tablet (50 mg total) by mouth in the morning. 90 tablet Discontinued Active Problems ProblemNoted DateDiagnosed DateColon cancer /12/2025Paroxysmal A-fib 8417Ngvsrh94/27/2022Anxiety srkwiwfy68/27/2022Degenerative lumbar spinal yvotiiva26/18/2022Cervical zrxmxgumucm62/18/2022Ophthalmic gaojtsiz78/17/2020 Chronic superficial gastritis without jcpvzuyu03/11/2018GERD without esophagitis 05/18/2017Morbid kymirfy0701/03/2017Lymphedema of both lower extremities Encounters DateTypeDepartmentCare KuqqXyykvzmtepi30/03/2025Refill [facility] [address] [place] [address] Hermes Eric, DO Depression, /31/2025Refill [facility] [address] [place] [address] Hermes Eric, DO Migraine without aura, not intractable, without status hqqxivxkaam21/25/2025 Refill [facility] [address] [place] [address] Hermes Eric, Non-seasonal allergic rhinitis, unspecified yqpskvj2111/08/2024Refill [facility] [address] [place] [address] Hermes Eric, Non-seasonal allergic rhinitis, unspecified triggerfrom Last 3 Months Immunizations ImmunizationAdministration DatesNext DueCOVID-19, mRNA, LNP-S, PF, 30mcg/0.3mL Dose11/10/2022,01/10/2021,05/13/2020,1Covid-19, Mrna, Lnp-s, Bivalent, Pf, 30mcg/0.3 ml11/15/2021ovid-19, Mrna, Lnp-s, Pf, 30 Mcg/0.3 Ml Dose, Vitaliy-qoupdub7905/19/2021ovid-, Mrna, Lnp-s, Pf,vitaliy-sucrose,30 Mcg/0.3ml Xvyxjvpc61/27/2024,11/10/2022Influenza (IM) Preservative Free12/29/2015Influenza High Dose Preservative Free IM11/06/2024Influenza Vaccine, Quadrivalent, Lbndnclmam19/23/2023Influenza, Im Trivalent Fyzymxtstrqp25/30/2024Influenza, Injectable, MDCK, Ktgwawbtitqu87/01/2020Influenza, Injectable, Mdck, Preservative Free, Quad12/05/2017,01/03/2017Influenza, Injectable, quadrivalent (PF)11/23/2020,12/03/2018Influenza, Trivalent, Eckdxbtmiu05/27/2024Influenza, Ainiseiwzke73/28/2022neumococcal Conjugate 13-Keoxkq9301/03/2017Pneumococcal Conjugate 20-yrtumd1609/11/2022RSV, recombinant, protein subunit RSVpreF, adjuvant reconstituted, 0.5 mL, PF12/08/20224293MFSD-WKD-5 (COVID-19) Vaccine, Unspecified 11/16/2021Tdap07/27/2014Zoster Live02/27/2022Zoster Vaccine Recombinant 05/16/2022 Family History Medical HistoryRelationNameCommentsCancerFatherProstateBreast cancerMaternal AuntPrema VossWas not cause of , unk ageAortic aneurysmMotherBil Breast CancerNeg HxRelationNameStatusCommentsFatherDeceasedMaternal AuntPrema Voss MotherDeceased Social History Tobacco UseTypesPacks/DayYears UsedDateSmoking Tobacco: NeverSmokeless Tobacco: Never Tobacco Cessation:Counseling Given: Not Answered Alcohol UseStandard Drinks/WeekCommentsNot Currently0 (1 standard drink = 0.6 oz pure alcohol)[facility] UtilitiesAnswerDate RecordedIn the past 12 months has the electric, gas, oil, or water company threatened to shut off services in your home?No01/23/2024Social Connection and Isolation PanelAnswerDate RecordedIn a typical week, how many times do you talk on the phone with family, friends, or neighbors?Once a week01/23/2024How often do you get together with friends or relatives?Twice a week01/23/2024How often do you attend muslim or yarsani services?More than 4 times per year01/23/2024o you belong to any clubs or organizations such as muslim groups, unions, fraternal or athletic groups, or school groups?No01/23/2024How often do you attend meetings of the clubs or organizations you belong to?Never01/23/2024re you , , , , never , or living with a partner?Nqnslov1201/23/2024UDIT-C AnswerDate RecordedQ1: How often do you have [...] and heating?Not hard at all06/18/2024 PHQ-2AnswerDate RecordedTotal Kjlab229[facility] [place] of Occupational Health - Occupational Stress QuestionnaireAnswerDate [...] part of a household?No06/18/2024hildcareAnswerDate RecordedDo problems getting child development assistant make it difficult for you to work [...] InformationValueDate RecordedSex Assigned at BirthNot on fileLegal PjgCyufsz81/06/2015 11:36 AM EDTGender IdentityNot on fileSexual EzvdnukjlowZdjojiqz99/08/2023 1:34 PM EST Last Filed Vital Signs Vital SignReadingTime TakenCommentsBlood Gjbansum405/80009/01/2024 3:01 PM EDT Ikcgq690509/01/2024 3:01 PM ERPEiqurmhikjl57.5 ??C (97.7 ??F)09/01/2024 3:01 PM EDTRespiratory Fggr807409/01/2024 3:01 PM EDTOxygen Muwyyxzcph64%09/01/2024 3:01 PM EDTInhaled Oxygen Concentration--Inipjm383.9 kg (222 lb 6.4 oz)09/01/2024 3:01 PM TTCWeunsi233.9 cm (4' 11.02 )09/01/2024 3:01 PM EDTBody Mass Index44.9 09/01/2024 3:01 PM EDT Plan of Treatment DateTypeDepartmentCare Team (Latest Contact Info)Vtholrtupyx11/08/2025 4:15 PM ESTOffice Visit [facility] [address] [place] [phone] Hermes Eric DO [address] [facility] [place] [address] 01/26/2025 11:00 AM ESTOffice Visit [facility] [address] [place] [address] Health MaintenanceDue DateLast DoneCommentsAdult BMI Follow Up Plan07/01/1975 Zoster (Shingles) Vaccine (3 of 3)/, 02/27/2022TaP,Tdap and Td Vaccines (2 - Td or Tdap)/10/2014Medicare Annual Wellness Visit /OVID-19 Vaccine ( season)/, 11/15/2023, 11/10/2022, Additional history existsFall Risk Frzwqwshw95/02/2026 06/19/2024dult BMI Lharrooez30Depression Lohtjawhv96/15/2026 09/01/2024Tobacco Kcxpjpqre605Colon Cancer Screening 3 Year Ngxyvdycw13/08/2022, 10/23/2019, 10/23/2019, Additional history exists RSV ( or age 60+ yrs)Mdkxkibvh64/21/2023Influenza VaccineCompleted 11/06/2024, 11/15/2023, 10/18/2023, Additional history exists Medical Devices Not on file Procedures Procedure NamePriorityDate/TimeAssociated DiagnosisCommentsCOLOGUARD NON-DWAHCEEPMAhucnwq37/07/2023 8:10 AM EDT Special screening for malignant neoplasm of colon from Last 3 Months or Most Recently Relevant to Health Maintenance Results * Cologuard Non-[facility] (10/25/2022 8:10 AM EDT)ComponentValueRef RangeTest MethodAnalysis TimePerformed AtPathologist SignatureEXTERNAL COLOGUARDNegative Gupxxrgz74/13/2023 5:57 PM EDTEXKowloonia (CLIA #:[id number]) Comment: NEGATIVE TEST RESULT. A negative Cologuard result indicates a low likelihood that a colorectal cancer (CRC) or advanced adenoma (adenomatous polyps with more advanced pre-malignant features) ??is present. The chance that a person with a negative Cologuard test has a colorectal cancer is less than 1in 1500 (negative predictive value >99.9%) or has an advanced adenoma is less than 5.3% (negative predictive value 94.7%). These data are based on a prospective cross-sectional study of 10,000individuals at average risk for colorectal cancer who were screened with both Cologuard and colonoscopy. (Dinesh Bates et al, N Engl J Med 2014;370(14):1135-1852) The normal value (reference range) for this assay is negative. COLOGUARD RE-SCREENING RECOMMENDATION: Periodic colorectal cancer screening is an important part ofpreventive healthcare for asymptomatic individuals at average risk for colorectal cancer. ??Following a negative Cologuard result, the [place] Cancer Society and U.S. Multi-Society Task Force screening guidelines recommend a Cologuard re-screening interval of 3 years. References: [place] Cancer Society Guideline for Colorectal Cancer Screening: https://www.cancer.or g/cancer/iierj-bfwloq-fpzxwa/emifzvccq-tgtbubxrz-jmrwqfo/acs-recommendations.htm nas.; Morro DK, Breonna CR, Holger BeaulieuK, Colorectal Cancer Screening: Recommendations for Physicians and Patients from the U.S. Multi-Society Task Force on Colorectal Cancer Screening , Am J Gastroenterology 2017; 112:2921-3461. TEST DESCRIPTION: Composite algorithmic analysis of stool DNA-biomarkers with hemoglobin immunoassay. ?? Quantitative values of individual biomarkers are not reportable and are not associated with individual biomarker result reference ranges. Cologuard is intended for colorectal cancer screening ofadults of either sex, 45 years or older, [...] (Dinesh Garvin al, N Engl J Med 2014;370(14):1595-6054.) Cologuard may produce a false negative or false positive result (no colorectal cancer or precancerous polyp present at colonoscopy follow up). A negative Cologuard test result does not guarantee the absence of CRC or advanced adenoma (pre-cancer). The current Cologuard screening interval is every 3 years. ([place]izen [place] Cancer Society and U.S. Multi-Society Task Force). Cologuard performance data in a 10,000 patient pivotal study using colonoscopy as the reference method can be accessed at the following location: www.[employer]/results. Additional description of the Cologuard test process, warnings and precautions can be found at www.cologuard.com. Specimen (Source)Anatomical Location / LateralityCollection Method / Volume Collection TimeReceived TimeStool specimen (specimen)Rectum structure / Unknown 10/25/2022 8:10 AM EDT10/27/2022 3:51 PM EDT Narrative Authorizing ProviderResult TypeResult StatusHermes Eric DOL ORDERABLESFinal ResultPerforming OrganizationAddressCity/State/ZIP CodePhone Number [facility] (CLIA #:[id number]) [address] [place] [address], from Last 3 Months or Most Recently Relevant to Health Maintenance Insurance Care Teams Team MemberRelationshipSpecialtyStart DateEnd Date Hermes Eric DO [address] [place] [address] PCP - GeneralInternal Medicine08/23/24
--- OUTSIDE RECORDS SUMMARY | 2025-01-21 12:26 | XMS_ITS | Clinical Summary ---
Author Organization [facility] Address [address] [place] [address] Phone Care Team Providers Care Card Assembler Name Role Phone AlyssaHermes betancur Jony ADAN Primary Care Provider [phone] Oliver Otero MD Unavailable Unavailabl e Allergies Active AllergyReactionsCriticalityNoted EgnpNkigyxonUbnsnmpCvljk30/01/2023 IbuprofenNausea/eotwjnnm10/01/2023 Medications MedicationSigDispense QuantityRefillsLast FilledStart DateEnd DateStatus omeprazole (PriLOSEC) [address] capsule Take 1 capsule (20 mg) by mouth once daily.Active sertraline (Zoloft) 100 mg tablet Take 1 tablet (100 mg) by mouth once daily.Active eletriptan (Relpax) 20 mg tablet Take 1 tablet (20 mg) by mouth 1 time if needed for migraine. May repeat in 2 hours if unresolved. Do not exceed 80 mg in 24 hours.Active amitriptyline (Elavil) 25 mg tablet Take 1 tablet (25 mg) by mouth once daily at bedtime.Active dofetilide (Tikosyn) 250 mcg capsule Indications:Paroxysmal atrial fibrillation (Multi)Take 1 capsule (250 mcg) by mouth every 12 hours. 180 capsule /50468511/16/2025ctive Active Problems ProblemNoted DateDiagnosed DateBMI 45.0-49.9, adult05/13/2023 Assessment & Plan (11/16/2024 4:26 PM EDT): Reviewed the merits of healthy lifestyle choices on overall cardiovascular health. Assessment & Plan (05/14/2024 9:52 AM EDT): Reviewed the merits of healthy lifestyle choices on overall cardiovascular health. Never smoked cwwzrow6105/13/2023aroxysmal atrial xlxwowdluwbw62/01/2023 Assessment & Plan (11/16/2024 4:26 PM EDT): Diagnosed January 2022 hospitalization. She was initiated on dofetilide and has been maintaining normal sinus rhythm since that time. Denies any recurrent palpitations. CHADS VASc 2 in the past has opted against anticoagulation due to excessive bruisability. Also declines aspirin 81 mg due to history of gastric bypass. Assessment & Plan (05/14/2024 9:52 AM EDT): Diagnosed January 2022 hospitalization. She was initiated on dofetilide and has been maintaining normal sinus rhythm since that time. Denies any recurrent palpitations. CHADS VASc 2 in the past has opted against anticoagulation due to excessive bruisability. Also declines aspirin 81 mg due to history of gastric bypass. High risk medications (not anticoagulants) long-term use01/18/2023 Assessment & Plan (11/16/2024 4:26 PM EDT): Dofetilide start date January 2022 EKG in office normal sinus rhythm, QTc 447 June 2024 creatinine 0.74 Assessment & Plan (05/14/2024 9:50 AM EDT): Dofetilide start date January 2022 EKG in office normal sinus rhythm, QTc 420. Last creatinine 0.77 Encounters DateTypeDepartmentCare ZnbxKujvqmlhwdr18/29/2025 8:00 AM EDTOffice Visit [facility] [address] [address] Janice Jones, FLESHING MACHINE OPERATOR-SUPERVISOR FABRICATION AND ASSEMBLY High risk medications (not anticoagulants) long-term use (Primary Dx); Paroxysmal atrial fibrillation (Multi); BMI 45.0-49.9, adult (Multi)11/16/2024Travelfrom Last 3 Months Immunizations ImmunizationAdministration DatesNext DueFlu vaccine, quadrivalent, no egg protein, age 6 month or greater (FLUCELVAX)12/05/2017,01/03/2017Influenza, injectable, MDCK, cghnjqqfzocg73/01/2020Influenza, seasonal, injectable 4Pfizer COVID-19 vaccine, bivalent, age 12 years and older (30 mcg/0.3 mL)11/15/2021fizer Chavez Cap ROBL-VdA-233/01/2022Pneumococcal conjugate vaccine, 13-valent (PREVNAR 13)01/03/2017Pneumococcal conjugate vaccine, 20-valent (PREVNAR 20)09/11/2022 Social History Tobacco UseTypesPacks/DayYears UsedDateSmoking Tobacco: NeverSmokeless Tobacco: Never Tobacco Cessation:Counseling Given: Yes Alcohol UseStandard Drinks/WeekCommentsNever0 (1 standard drink = 0.6 oz pure alcohol)CommentsUnknownSex and Gender InformationValueDate RecordedSex Assigned at BirthNot on fileLegal PxrBzjmcv00/29/2022 2:28 PM ESTGender Identity Not on fileSexual OrientationNot on file Last Filed Vital Signs Vital SignReadingTime TakenCommentsBlood Darywimw847/8209 7:59 AM EDT Vmnrl820411/16/2024 7:59 AM EDTTemperature--Respiratory Rate--Oxygen Saturation-- Inhaled Oxygen Concentration--Gabnrv423 kg (226 lb 9.6 oz)11/16/2024 7:59 AM EDT Zcuilq510.9 cm (4' 11 )11/16/2024 7:59 AM EDTBody Mass Index45.7709 7:59 AM EDT Plan of Treatment DateTypeDepartmentCare Team (Latest Contact Info)Jcijlhcannz94/30/2026 8:30 AM EDTOffice Visit [facility] [address] [address] Janice Jones, FLESHING MACHINE OPERATOR-SUPERVISOR FABRICATION AND ASSEMBLY [address] [facility], [address] [place] [address] Health MaintenanceDue DateLast DoneCommentsCT Vgokhmozrpne54/13/1958Colonoscopy 1957FIT1957Lipid Panel1957Medicare Annual Wellness Visit (AWV) 1957Wgfrhlvgafkkc33/13/1958MMR Vaccines (1 of 1 - Standard series) 1958Diabetes Euxomyzaz08/13/1976Hepatitis C Hznyhktur51/13/1976 DTaP/Tdap/Td Vaccines (2 - Td or Tdap)/10/20142771Cyilevtcw13/13/2025 01/31/2024OVID-19 Vaccine ( season)/, 11/15/2023, 11/10/2022, Additional history existsColorectal Cancer Rvzjdlrut18/07/2026FIT- DNA (Cologuard)/08/2022, 10/19/2019Bone Density Scan01/30/2026 01/31/2024Zoster PajqhspqWcnvorutl85/29/2023, 02/27/2022neumococcal Vaccine Ahgxqxysq73/25/2023, 01/03/2017RSV High Risk: (Elderly (60+) or Population)Cazpfllke83/21/2023Influenza AyzbgrbDwbmzyvlq44/19/2025, 11/15/2023, 10/18/2023, Additional history existsHIB VaccinesAged OutNo longer eligible based on patient's age to complete this topicHPV VaccinesAged OutNo longer eligible based on patient's age to complete this topicHepatitis A VaccinesAged OutNo longer eligible based on patient's age to complete this topicHepatitis B VaccinesAged OutNo longer eligible based on patient's age to complete this topic IPV VaccinesAged OutNo longer eligible based on patient's age to complete this topicMeningococcal VaccineAged OutNo longer eligible based on patient's age to complete this topicRotavirus VaccinesAged OutNo longer eligible based on patient's age to complete this topic Procedures Procedure NamePriorityDate/TimeAssociated DiagnosisCommentsECG 12-LEADRoutine 11/16/2024 8:00 AM EDT Paroxysmal atrial fibrillation (Multi) from Last 3 Months Results * ECG 12 Lead (11/16/2024 8:00 AM EDT)Specimen (Source)Anatomical Location / LateralityCollection Method / VolumeCollection TimeReceived Time Narrative CPACS - 11/19/2024 5:27 PM EDT Normal sinus rhythm, normal ECG. Authorizing ProviderResult TypeResult StatusKyleluis alfredo Dowd Robert FLESHING MACHINE OPERATOR-CNPECG ORDERABLES Final ResultPerforming OrganizationAddressCity/State/ZIP CodePhone Number CPACS from Last 3 Months Insurance Care Teams Team MemberRelationshipSpecialtyStart DateEnd Date Hermes Eric DO PCP - General02/21/22 Oliver Otero MD Consulting PhysicianCardiology05/13/23
== END 2025-01-21 08:39 ==
LOC: LAB 08:38
PROVIDERS: PCP Internal Medicine; Visit Provider Physician Assistant
DX: Z01.419 Encounter for gynecological examination (general) (routine) without abnormal findings (principal)
CPT/HCPCS: 88175

== ENCOUNTER 2025-01-21 08:42 | Outpatient (REF) | payer MEDICARE, OTHER, SELFPAY | END 2025-01-21 08:43 | disposition home or self-care (01) | LOC: LAB 08:42 | PROVIDERS: PCP Internal Medicine; Visit Provider Obstetrics & Gynecology | DX: Z01.419 Encounter for gynecological examination (general) (routine) without abnormal findings (principal) | CPT/HCPCS: 88175 ==